=== PATIENT | female | born 1940 | race Caucasian/White ===

== ENCOUNTER 2018-04-02 14:49 | Outpatient (REF) | payer OTHER, MEDICAID, SELFPAY | END 2018-04-02 15:09 | LOC: NCHCN 14:49 | PROVIDERS: PCP Internal Medicine; Visit Provider Nurse Practitioner Family | DX: R30.0 Dysuria (principal) | CPT/HCPCS: 87077; 87086; 87186 ==

== ENCOUNTER 2018-04-09 21:20 | Outpatient (REF) | payer OTHER, MEDICAID, SELFPAY ==
[2018-04-09 22:05] LABS: RBC Negative (0-2); WBC 20-50 HPF (0-5)
[2018-04-09 22:06] LABS: Bacteria Moderate HPF (Negative); C & S Indicated? Yes; Crystals Negative HPF (Negative); Epithelial Cells Few HPF (Negative); Mucus Negative (Negative); Other Cells Rare Renal (Negative)
== END 2018-04-09 21:40 ==
LOC: NCHCN 21:20
PROVIDERS: PCP Internal Medicine; Visit Provider Nurse Practitioner Family
DX: N39.0 Urinary tract infection, site not specified (principal)
CPT/HCPCS: 87077; 81015; 87086; 87186

== ENCOUNTER 2018-05-18 13:53 | Outpatient (REF) | payer OTHER, MEDICAID, SELFPAY | END 2018-05-18 14:13 | LOC: NCHCN 13:53 | PROVIDERS: PCP Internal Medicine; Visit Provider Nurse Practitioner Family | DX: R30.0 Dysuria (principal) | CPT/HCPCS: 87077; 87086 ==

== ENCOUNTER 2019-05-11 13:41 | Inpatient (IN) | payer OTHER, MEDICAID, SELFPAY ==
[2019-05-11] VITALS (48 sets, daily range): BP systolic 126–166; BP diastolic 44–106; PULSE 86–109; RESP 3–31; TEMP 36.8–37.4; O2SAT 88–99
--- NOTE | 2019-05-11 14:43 | W.ED.GENAD ---
Discharge Plan Disposition Patient Disposition: [facility] INPATIENT Condition: Stable Discharge Details Chief Complaint: SOB Clinical Impression: Pneumonia, Acute hyponatremia Admit Date/Time: 05/11/19 18:24 Admit Provider: Terrence Stevenson Attending Provider: Terrence Stevenson Primary Care Provider: Sunny Torres ED Provider: Yenny Khan Discharge Data Discharge Date/Time-TO BE ENTERED AT DEPARTURE: 05/11/19 19:20 Medical Decision Making <ALANA Puga - Last Filed: 05/12/19 08:27> 78-year-old female with history of COPD, rheumatoid arthritis, hypertension presents to the ER for cough and increased dyspnea over the past 48 hours. Given her symptoms, travel to [place] where there was a positive ugalde virus test performed, patient certainly is a person under interest for potential coronavirus. She was placed in room 6, all PPE followed, negative pressure was turned on. Given the initial concern for ugalde virus, albuterol treatment not given. Will obtain IV access, routine laboratory values including troponin and will hold off on BNP as she does not appear to be fluid overloaded. Will obtain 1 view chest x-ray Laboratory values came back revealing WBC of 13.09, hemoglobin 10.5 hematocrit 32 sodium 123 potassium 5.3 creatinine 1.59 calcium 8.3. I have no point of reference for previous laboratory values. EKG did not show any signs of obvious hyperkalemia. Patient was given normal saline at 125 an hour while awaiting the rest of her work-up. Flu negative Chest x-ray reveals what appears to be diffuse multifocal pneumonia, cannot rule out failure. Will obtain BNP, lactate, 2 blood cultures, urinalysis. Will initiate IV Rocephin and azithromycin for community-acquired pneumonia. I was able to speak with ALANA Napoles who sent her here. He was able to review her previous record. She has a history of chronic kidney disease. On 03-30-19 her creatinine was 1.59 hemoglobin 10.8, hematocrit 35, sodium 136, potassium 4.9. It appears as though her renal function appears baseline today based upon these numbers, H&H are near baseline as well obviously sodium and potassium are both not at her baseline. Given her potassium today and her breathing complaints, will give a single albuterol neb. Now awaiting lactate, blood cultures x2, updraft, initiation of IV antibiotics, and BNP. Once work-up is complete we will plan to admit for multi focal pneumonia and hyponatremia. Medical Records Medical records reviewed: Yes I reviewed the patient's medical records. Imaging Data Radiologic Study: Attestation: I personally reviewed and interpreted this imaging study as follows: Radiologist's impression: Discussed chest x-ray with radiologist. Likely diffuse multifocal pneumonia however failure cannot be ruled out Lab Data Lab results reviewed: Yes I reviewed the patient's lab results. Lab results narrative: 05/11/19 15:49 Blood Blood Culture - Pending 05/11/19 15:49 Blood Blood Culture - Pending 05/11/19 15:00 Nasopharynx Influenza Types A,B Antigen - Final Laboratory Tests Range/Units 05/11/19 05/11/19 14:20 14:20 WBC (4.4-10.8) k/cumm 13.09 H RBC (4.00-5.20) m/cumm 3.78 L Hgb (12.0-15.5) g/dL 10.5 L Hct (36.0-46.0) % 32.0 L MCV (80-95) fL 84.7 MCH (27.0-33.0) pg 27.8 MCHC (32.0-36.0) g/dL 32.8 RDW (11.7-14.6) % 13.4 Plt Count (130-400) x1000/uL 316 MPV (8.0-11.0) fL 9.7 Immature Gran % % 0.0 Neutrophils % 83.0 Band Neutrophils % % 2.0 Lymphocytes % 3.0 Atypical Lymphs % 2 Monocytes % 8.0 Eosinophils % 0.0 Basophils % 0.0 Absolute Neutrophils (1.2-6.7) k/cumm 11.13 H Absolute Lymphocytes (1.2-3.4) k/cumm 0.65 L Absolute Monocytes (0.11-0.7) k/cumm 1.05 H Absolute Eosinophils (0.0-0.7) k/cumm 0.00 Absolute Basophils (0.0-0.2) k/cumm 0.00 Differential Comment Manual differential Other Cell Type RBC Morphology Normal Sodium (136-145) mmol/L 123 L* Potassium (3.5-5.1) mmol/L 5.3 H Chloride (98-107) mmol/L 93 L Carbon Dioxide (21.0-32.0) mmol/L 20.7 L Anion Gap (3-11) mmol/L 9.3 BUN (7-18) mg/dL 22 H Creatinine (0.55-1.02) mg/dL 1.59 H Estimated GFR/1.73 m2 (mL/min/1.73m2) 31.57 Glucose (74-106) mg/dL 74 Calcium (8.5-10.1) mg/dL 8.3 L Magnesium (1.8-2.4) mg/dL 1.8 Total Bilirubin (0.2-1.0) mg/dL 0.5 AST (15-37) U/L 47 H ALT (14-59) U/L 38 Alkaline Phosphatase (46-116) U/L 46 Troponin I (<0.06) ng/Ml < 0.05 Total Protein (6.4-8.2) g/dL 7.7 Albumin (3.4-5.0) g/dL 2.0 L ECG Data Attestation: I personally reviewed and interpreted this ECG (s) as follows: Interpretation: EKG reviewed and interpreted by Dr. Chirinos. Sinus rhythm with a ventricular rate of 92. No acute ST elevation or depression segments. <Yenny Khan - Last Filed: 05/11/19 19:43> Patient care accepted from ALANA Castillo see previously documented HPI and physical. This patient is awaiting lab results and pending admission for upper respiratory infection. Possibly multifocal pneumonia. Covid testing is underway and at this time patient is a PUI. Lactate and BNP resulted, Lactate is WNL and BNP slightly elevated at 344. Blood cultures pending. 171: Patient c/o some nausea, Zofran orders in place. 1741: Spoke with Dr. Stevenson who agrees to admit patient for possible pneumonia, hyponatremia, and hyperkalemia. Call made to transfer and pumphouse operator who reports patient to go up to negative pressure room on second floor. HPI <ALANA Puga - Last Filed: 05/12/19 08:27> General Mode of arrival: ambulatory. Date/Time Provider Initiated Documentation: 05/11/19 13:42. Limitations to Documentation: no limitations. Information obtained by: patient. HPI Narrative: This is a 78-year-old female with history of hypertension, RA, on methotrexate, COPD, GERD, presenting to the ER from her primary care office for what sounds to be 24-48-hour illness including cough which is dry, fatigue, shortness of breath. She has not traveled outside of the region however she did go to the [facility] in [place] where they did have a positive Covid patient. She does report that her significant other also developed a cough over the past 24 hours. She reports a a stomach cramp yesterday with mild nausea and one episode of vomiting but those GI symptoms have completely resolved. Noted to be 84% O2 saturation on room air and her primary care office. She was 90% upon arrival here without O2 supplementation. 3 L of O2 nasal cannula brought her up to 97%. She denies headache, neck pain, fever but has felt warm. Denies any chest pain, back pain, numbness, tingling, weakness, urinary or bowel symptoms. Patient does not wear home oxygen at baseline Related Data Home Medications Medication Instructions Recorded Confirmed calcium carbonate-vitamin D3 1 ea PO DAILY 04/15/16 05/11/19 [Calcium 600 + Vit D Tablet] hydroxychloroquine 200 mg PO DAILY 04/15/16 05/11/19 ipratropium-albuterol [Combivent 1 puff INHALATION QID PRN 04/15/16 05/11/19 Respimat Inhaler] lisinopril 10 mg PO DAILY 04/15/16 05/11/19 methotrexate sodium 5 tab PO .QWEEK 04/15/16 05/11/19 prednisone 1 mg PO DAILY 04/15/16 05/11/19 ranitidine HCl [Zantac] 150 mg PO DAILY 04/15/16 05/11/19 sertraline 100 mg PO DAILY 04/15/16 05/11/19 Allergies Allergy/AdvReac Type Severity Reaction Status Date / Time Sulfa (Sulfonamide Allergy Mild Skin Rash Unverified 05/11/19 13:52 Antibiotics) tramadol [From Ultram] AdvReac Intermediate vomiting Unverified 05/11/19 13:52 oxycodone [From Percocet] AdvReac Mild knocks me Unverified 05/11/19 13:52 out. I don't like it. General Stated Complaint: SOB SUSHMA: 3 Review of Systems <ALANA Puga - Last Filed: 05/12/19 08:27> Constitutional Constitutional: Reports fatigue, Reports fever(s) (Denies fever but she does feel warm) and Denies headache(s) Eyes Eyes: Denies eye discharge ENT Ears, Nose, Mouth, and Throat: Denies headache(s) and Denies sore throat Cardiovascular Cardiovascular: Denies chest pain and Denies dyspnea Respiratory Respiratory: Denies cough, Denies dyspnea and Denies wheezing Gastrointestinal Gastrointestinal: Reports abdominal pain (Yesterday), Denies diarrhea, Reports nausea (Yesterday) and Reports vomiting (Yesterday) Genitourinary Genitourinary: Denies dysuria Musculoskeletal Musculoskeletal: Denies myalgias Integumentary/Breasts Skin/Breast: Denies rash Neurologic Neurologic: Denies headache(s) Endocrine Endocrine: Reports fatigue Allergic/Immunologic Allergic/Immunologic: Denies wheezing PFSH <ALANA Puga - Last Filed: 05/12/19 08:27> Social History Smoking/Tobacco Use Status: Former Tobacco Use Alcohol Intake: never Drug use: Never Substance use type: does not use Exam <ALANA Puga - Last Filed: 05/12/19 08:27> Const General: cooperative and no acute distress Orientation: alert and awake HENVT Head: normal to inspection, normocephalic and atraumatic Mouth: moist mucous membranes abnormal (Slightly dry) Throat: posterior oropharynx normal Eyes Conjunctivae: conjunctivae normal Neck Neck: normal visual inspection, full ROM, no lymphadenopathy, no meningeal signs, trachea midline and supple Resp Effort & Inspection: normal respiratory effort, able to speak in complete sentences and cough Quality of cough: dry Auscultation: diminished lung sounds (Throughout), rhonchi (Bilateral base) and wheezes (Scattered throughout, mild) Cardio Rate: regular rate Rhythm: regular rhythm GI Inspection: normal to inspection Palpation: soft, not firm, no guarding, not rigid and nontender Auscultation: normal bowel sounds Back/Spine/Pelvis Back: No back tenderness Skin General skin exam: no rashes or lesions noted Trauma: abrasion (Right forearm, well-healing) Neuro General: patient alert, patient awake, patient oriented x3, moves all extremities and no focal motor deficits Sensory Exam: no sensory deficits noted Extrem General: normal to inspection, full ROM, capillary refill normal and no pedal edema Psych Appearance: grossly normal Mental Status: mental status grossly normal Course <ALANA Puga - Last Filed: 05/12/19 08:27> Vital Signs Vital signs: Vital Signs Temperature 36.8 C 05/11/19 13:48 Pulse 94 H 05/11/19 13:48 Respiratory Rate 18 05/11/19 13:48 Blood Pressure 166/55 H 05/11/19 13:48 Pulse Oximetry 91 L 05/11/19 13:48 Temperature 36.8 C 05/11/19 13:48 Temperature Source Tympanic 05/11/19 13:48 Pulse 94 H 05/11/19 13:48 Respiratory Rate 18 05/11/19 13:48 Respiratory Effort Short of Breath 05/11/19 13:51 Blood Pressure 166/55 H 05/11/19 13:48 Blood Pressure Position Sitting 05/11/19 13:48 Pulse Oximetry 91 L 05/11/19 13:48 Oxygen Delivery Method Room Air 05/11/19 13:48 Oxygen Flow Rate 0 05/11/19 13:48 Pain Level 0 05/11/19 13:48 Sign Out <ALANA Puga - Last Filed: 05/12/19 08:27> Sign Out Data: Sign Out Comment: Awaiting lactate, BNP, blood culture x2. Awaiting albuterol updraft and reassessment. Initiating Rocephin and azithromycin. Once work-up is completed, patient will need admission. Last updated by Aydin Aponte PA at 05/11/19 16:16
[2019-05-11 14:57] LABS: Abs Immature Grans 0.03 k/cumm (0.0-0.09); HGB 10.5 g/dL (12.0-15.5); Mean Corp. HGB Concentration 32.8 g/dL (32.0-36.0); Mean Corpuscular Hemoglobin 27.8 pg (27.0-33.0); Mean Corpuscular Volume 84.7 fL (80-95); Mean Platelet Volume 9.7 fL (8.0-11.0); Platelet Count 316 x1000/uL (130-400); RBC 3.78 m/cumm (4.00-5.20); RBC Distribution Width 13.4 % (11.7-14.6); White Blood Cell Count 13.09 k/cumm (4.4-10.8)
[2019-05-11 15:13] LABS: ALT 38 U/L (14-59); AST 47 U/L (15-37); Alkaline Phosphatase 46 U/L (46-116); Anion Gap 9.3 mmol/L (3-11); BUN 22 mg/dL (7-18); Bilirubin, Total 0.5 mg/dL (0.2-1.0); CO2 20.7 mmol/L (21.0-32.0); CREATININE 1.59 mg/dL (0.55-1.02); Calcium 8.3 mg/dL (8.5-10.1); Chloride 93 mmol/L (98-107); Estimated GFR 31.57 (mL/min/1.73m2); Glucose 74 mg/dL (74-106); Magnesium 1.8 mg/dL (1.8-2.4); Potassium 5.3 mmol/L (3.5-5.1); Total Protein 7.7 g/dL (6.4-8.2)
[2019-05-11 15:15] LABS: Sodium 123 mmol/L (136-145); Troponin I < 0.05 ng/Ml (<0.06)
--- NOTE | 2019-05-11 15:16 | DI.RAD_ITS ---
EXAM: XR PORTABLE CHEST AP CLINICAL HISTORY: cough COMPARISON: No exams were available for comparison FINDINGS: The heart may be mildly enlarged. There are bilateral diffuse patchy, predominantly interstitial pulm onary infiltrates. No gross lobar consolidation seen. IMPRESSION: Multifocal/diffuse bilateral intrapulmonary infiltrates which appear to involve all pulmonary lobes. The findings are nonspecific, differential diagnosis would include CHF versus multifocal or diffuse p neumonia. Appropriate follow-up studies requested.
[2019-05-11] MEDS: Normal Saline 1,000 ML 100 ML IV (15:31)
[2019-05-11 15:43] LABS: Absolute Lymphocyte Count 0.65 k/cumm (1.2-3.4); Absolute Monocyte Count 1.05 k/cumm (0.11-0.7); Absolute Neutrophil Count 11.13 k/cumm (1.2-6.7); Atypical Lymphocytes % 2
[2019-05-11 15:45] LABS: Diff Comment Manual Differential; RBC Morphology Normal
[2019-05-11 16:44] LABS: Lactate 1.1 mmol/L (0.6-1.4)
[2019-05-11] MEDS: Albuterol 2.5 MG/3 ML INH SOLN VIAL UPD (16:51)
[2019-05-11] MEDS: cefTRIAXone 1 GM/50 ML BAG IVPB (16:51)
--- NOTE | 2019-05-11 16:52 | NUR.NOTE ---
after blood cultures where obtained , IV meds given as orderdNursing Note:
[2019-05-11] MEDS: AZITHROMYCIN 500 MG in Normal Saline 250 ML 250 MG IVPB (17:28)
[2019-05-11] MEDS: Ondansetron 4 MG/2 ML VIAL IVP (17:28)
[2019-05-11 17:32] LABS: NT-proBNP 344 pg/mL (<300)
[2019-05-11 17:54] LABS: Bilirubin Negative (Negative); Blood Small (Negative); Clarity Cloudy (Clear); Glucose Negative (Negative); Ketones Trace mg/dL (Negative); Leukocyte Esterase Small (Negative); Nitrite Positive (Negative); Specific Gravity 1.025 (1.005-1.025); Urobilinogen 0.2 EU/dL (Up TO 0.2)
--- NOTE | 2019-05-11 18:01 | W.PM.HP.N ---
Date of service: 05/11/19 Time of Service: 18:01 Assessment and Plan Assessment and plan (1) Pneumonia: Status: Acute Assessment and plan: 1. COPD with apparent pneumonia. Likely bacterial, will certainly cover for same, along with steroids and updrafts for COPD The hyponatremia is noted, non-specific, and no old records (usually cared for in [place]), but does raise obliquely possibility of Legionella, and will add urinary antigen testing. I think the risk for Covid 19 is low but not zero and will maintain precautions pending test results. 2. Hyponatremia: r/o hypovolemic, r/o SIADH due to SSRI or legionella: Will hold Zoloft, check old records, hydrate and monitor 3. Hyperkalemia (5.3): hold Lisinopril, monitor 4. Reviewed advance directives: requests DNR History of Present Illness History of Present Illness Chief Complaint: cough and SOB Narrative: 78 female with COPD, and immunocompromised secondary to use of Prednisone and MTX for RA -- here with two days of cough and SOB. Note that boyfriend has had similar illness. [facility] where + Covid19 case reported but no known direct contact. At any rate here in ER findings of note for RA sat 89%, RR 18, wheeze and rhonchi, leukocytosis (13), and CXR showing multifocal pneumonitis. Hyponatremia (123) and hyperkalemia (5.3) also noted. Blood cxx obtained, Covid19 swab obtained, given updraft, Rocephin and Zithromax. Admitted for further management. Review of Systems All systems reviewed & are unremarkable except as noted in HPI and below PFSH Social History Smoking/Tobacco Use Status: Former Tobacco Use Alcohol Intake: never Drug use: Never Substance use type: does not use Meds Home Medications and Allergies Home Medications Medication Instructions Recorded Confirmed Type calcium carbonate-vitamin D3 1 ea PO DAILY 04/15/16 05/11/19 History [Calcium 600 + Vit D Tablet] hydroxychloroquine 200 mg PO DAILY 04/15/16 05/11/19 History ipratropium-albuterol [Combivent 1 puff INHALATION QID PRN 04/15/16 05/11/19 History Respimat Inhaler] lisinopril 10 mg PO DAILY 04/15/16 05/11/19 History methotrexate sodium 5 tab PO .QWEEK 04/15/16 05/11/19 History prednisone 1 mg PO DAILY 04/15/16 05/11/19 History ranitidine HCl [Zantac] 150 mg PO DAILY 04/15/16 05/11/19 History sertraline 100 mg PO DAILY 04/15/16 05/11/19 History Allergies Allergy/AdvReac Type Severity Reaction Status Date / Time Sulfa (Sulfonamide Allergy Mild Skin Rash Unverified 05/11/19 13:52 Antibiotics) tramadol [From Ultram] AdvReac Intermediate vomiting Unverified 05/11/19 13:52 oxycodone [From Percocet] AdvReac Mild knocks me Unverified 05/11/19 13:52 out. I don't like it. Exam Narrative Exam Narrative: 156/57, 89, 18, 37.2. 91% 1L. HEENT AStraumatic; neck supple; lings dimiminished BS, scattered rhochi and wheeze; heart distnat but RRR; abdomen soft and NT; extremities w/o edema; neuro ox3 non-focal Results CXR shows bibasilar pneumonitis with increased diffuse interstitial pattern, with normal heart size. Labs Result diagrams: 05/11/19 14:20 05/11/19 14:20 Labs: Laboratory Results - last 24 hr 05/11/19 05/11/19 05/11/19 14:20 14:20 16:30 WBC 13.09 H RBC 3.78 L Hgb 10.5 L Hct 32.0 L MCV 84.7 MCH 27.8 MCHC 32.8 RDW 13.4 Plt Count 316 MPV 9.7 Immature Gran % 0.0 Neutrophils % 83.0 Band Neutrophils % 2.0 Lymphocytes % 3.0 Atypical Lymphs % 2 Monocytes % 8.0 Eosinophils % 0.0 Basophils % 0.0 Absolute Neutrophils 11.13 H Absolute Lymphocytes 0.65 L Absolute Monocytes 1.05 H Absolute Eosinophils 0.00 Absolute Basophils 0.00 Differential Comment Manual differential Other Cell Type RBC Morphology Normal Sodium 123 L* Potassium 5.3 H Chloride 93 L Carbon Dioxide 20.7 L Anion Gap 9.3 BUN 22 H Creatinine 1.59 H Estimated GFR/1.73 m2 31.57 Glucose 74 Lactate Calcium 8.3 L Magnesium 1.8 Total Bilirubin 0.5 AST 47 H ALT 38 Alkaline Phosphatase 46 Troponin I < 0.05 NT-Pro-B Natriuret Pep 344 H Total Protein 7.7 Albumin 2.0 L Urine Color Urine Clarity Urine pH Ur Specific [place] Urine Protein Urine Ketones Urine Blood Urine Nitrite Urine Bilirubin Urine Urobilinogen Ur Leukocyte Esterase Urine Glucose 05/11/19 05/11/19 16:30 17:45 WBC RBC Hgb Hct MCV MCH MCHC RDW Plt Count MPV Immature Gran % Neutrophils % Band Neutrophils % Lymphocytes % Atypical Lymphs % Monocytes % Eosinophils % Basophils % Absolute Neutrophils Absolute Lymphocytes Absolute Monocytes Absolute Eosinophils Absolute Basophils Differential Comment Other Cell Type RBC Morphology Sodium Potassium Chloride Carbon Dioxide Anion Gap BUN Creatinine Estimated GFR/1.73 m2 Glucose Lactate 1.1 Calcium Magnesium Total Bilirubin AST ALT Alkaline Phosphatase Troponin I NT-Pro-B Natriuret Pep Total Protein Albumin Urine Color Yellow Urine Clarity Cloudy Urine pH 6.0 Ur Specific [place] 1.025 Urine Protein 30 H Urine Ketones Trace H Urine Blood Small H Urine Nitrite Positive H Urine Bilirubin Negative Urine Urobilinogen 0.2 Ur Leukocyte Esterase Small H Urine Glucose Negative Last Vital Signs Temp 37.2 C 05/11/19 16:57 Pulse 89 05/11/19 16:57 Resp 18 05/11/19 16:57 BP 156/57 H 05/11/19 16:57 Pulse Ox 91 L 05/11/19 16:57
[2019-05-11 18:14] LABS: Bacteria Many HPF (Negative); C & S Indicated? No/Sq. Contamination; Casts Negative LPF (Negative); Crystals Negative HPF (Negative); Epithelial Cells Many HPF (Negative); Mucus Negative (Negative); Other Cells Negative (Negative)
[2019-05-11] MEDS: methylPREDNISolone SUCC 40 MG VIAL IVP (18:46)
[2019-05-11] MEDS: Albuterol/Ipratropium 3 ML UPD VIAL UPD (21:17)
[2019-05-11] MEDS: Melatonin 3 MG TAB PO (21:19)
[2019-05-12] VITALS (12 sets, daily range): BP systolic 136–151; BP diastolic 58–75; PULSE 83–86; RESP 3–32; TEMP 36.2–36.6; O2SAT 90–95
[2019-05-12] MEDS: Albuterol/Ipratropium 3 ML UPD VIAL UPD (02:30)
[2019-05-12] MEDS: methylPREDNISolone SUCC 40 MG VIAL IVP ×3 (02:32→17:06)
[2019-05-12] MEDS: Normal Saline Flush 10 ML SYR IVP ×3 (02:32→17:06)
[2019-05-12 07:22] LABS: HCT 29.2 % (36.0-46.0); HGB 9.4 g/dL (12.0-15.5); Mean Corp. HGB Concentration 32.2 g/dL (32.0-36.0); Mean Corpuscular Hemoglobin 27.4 pg (27.0-33.0); Mean Corpuscular Volume 85.1 fL (80-95); Mean Platelet Volume 9.7 fL (8.0-11.0); Platelet Count 303 x1000/uL (130-400); RBC 3.43 m/cumm (4.00-5.20); RBC Distribution Width 13.4 % (11.7-14.6); White Blood Cell Count 9.67 k/cumm (4.4-10.8)
[2019-05-12 07:23] LABS: Anion Gap 11.1 mmol/L (3-11); BUN 20 mg/dL (7-18); CO2 18.9 mmol/L (21.0-32.0); CREATININE 1.61 mg/dL (0.55-1.02); Calcium 7.6 mg/dL (8.5-10.1); Chloride 96 mmol/L (98-107); Estimated GFR 31.11 (mL/min/1.73m2); Glucose 155 mg/dL (74-106); Potassium 5.1 mmol/L (3.5-5.1); Sodium 126 mmol/L (136-145)
[2019-05-12] MEDS: Hydroxychloroquine 200 MG TAB PO (08:12)
[2019-05-12] MEDS: Famotidine 20 MG TAB PO (08:13)
--- NOTE | 2019-05-12 08:26 | ED.GENADUL_ITS ---
Discharge Plan Disposition Patient Disposition: [facility] INPATIENT Condition: Stable Discharge Details Chief Complaint: SOB Clinical Impression: Pneumonia, Acute hyponatremia Admit Date/Time: 05/11/19 18:24 Admit Provider: Terrence Stevenson Attending Provider: Terrence Stevenson Primary Care Provider: Sunny Torres ED Provider: Yenny Khan Discharge Data Discharge Date/Time-TO BE ENTERED AT DEPARTURE: 05/11/19 19:20 HPI General Mode of arrival: ambulatory . Date/Time Provider Initiated Documentation: 05/11/19 13:42 . Limitations to Documentation: no limitations . Information obtained by: patient . Related Data Home Medications Medication Instructions Recorded Confirmed calcium carbonate-vitamin D3 1 ea PO DAILY 04/15/16 05/11/19 [Calcium 600 + Vit D Tablet] hydroxychloroquine 200 mg PO DAILY 04/15/16 05/11/19 ipratropium-albuterol [Combivent 1 puff INHALATION QID PRN 04/15/16 05/11/19 Respimat Inhaler] lisinopril 10 mg PO DAILY 04/15/16 05/11/19 methotrexate sodium 5 tab PO .QWEEK 04/15/16 05/11/19 prednisone 1 mg PO DAILY 04/15/16 05/11/19 ranitidine HCl [Zantac] 150 mg PO DAILY 04/15/16 05/11/19 sertraline 100 mg PO DAILY 04/15/16 05/11/19 Allergies Allergy/AdvReac Type Severity Reaction Status Date / Time Sulfa (Sulfonamide Allergy Mild Skin Rash Unverified 05/11/19 13:52 Antibiotics) tramadol [From Ultram] AdvReac Intermediate vomiting Unverified 05/11/19 13:52 oxycodone [From Percocet] AdvReac Mild knocks me Unverified 05/11/19 13:52 out. I don't like it. General Stated Complaint: SOB SUSHMA: 3 PFSH Social History Smoking/Tobacco Use Status: Former Tobacco Use Alcohol Intake: never Drug use: Never Substance use type: does not use Course Vital Signs Vital signs: Vital Signs Temperature 36.8 C 05/11/19 13:48 Pulse 94 H 05/11/19 13:48 Respiratory Rate 18 05/11/19 13:48 Blood Pressure 166/55 H 05/11/19 13:48 Pulse Oximetry 91 L 05/11/19 13:48 Temperature 36.6 C 05/12/19 08:14 Temperature Source Tympanic 05/12/19 08:14 Pulse 86 05/12/19 08:14 Pulse Rhythm Regular 05/12/19 02:38 Pulse 95 H 05/11/19 18:30 Respiratory Rate 32 H 05/12/19 08:21 Respiratory Effort Incrsd Work of Breathing 05/12/19 08:21 Respiratory Depth Deep 05/12/19 08:21 Respiratory Pattern Normal 05/12/19 08:21 Blood Pressure 144/64 H 05/12/19 08:14 Blood Pressure Mean 67 05/11/19 17:30 Blood Pressure Position Sitting 05/11/19 13:48 Pulse Oximetry 93 L 05/12/19 08:20 Oxygen Delivery Method Nasal Cannula 05/12/19 08:20 Oxygen Flow Rate 1 05/12/19 08:20 Pain Level 0 05/12/19 00:35 Comment 05/11/19 19:55 Lab/Test Results Lab/Test Results: 05/11/19 16:40 Blood Blood Culture - Pending 05/11/19 16:30 Blood Blood Culture - Pending 05/11/19 15:00 Nasopharynx Influenza Types A,B Antigen - Final Laboratory Tests Range/Units 05/11/19 05/11/19 05/11/19 14:20 14:20 16:30 WBC (4.4-10.8) k/cumm 13.09 H RBC (4.00-5.20) m/cumm 3.78 L Hgb (12.0-15.5) g/dL 10.5 L Hct (36.0-46.0) % 32.0 L MCV (80-95) fL 84.7 MCH (27.0-33.0) pg 27.8 MCHC (32.0-36.0) g/dL 32.8 RDW (11.7-14.6) % 13.4 Plt Count (130-400) x1000/uL 316 MPV (8.0-11.0) fL 9.7 Immature Gran % % 0.0 Neutrophils % 83.0 Band Neutrophils % % 2.0 Lymphocytes % 3.0 Atypical Lymphs % 2 Monocytes % 8.0 Eosinophils % 0.0 Basophils % 0.0 Absolute Neutrophils (1.2-6.7) k/cumm 11.13 H Absolute Lymphocytes (1.2-3.4) k/cumm 0.65 L Absolute Monocytes (0.11-0.7) k/cumm 1.05 H Absolute Eosinophils (0.0-0.7) k/cumm 0.00 Absolute Basophils (0.0-0.2) k/cumm 0.00 Differential Comment Manual differential Other Cell Type RBC Morphology Normal Sodium (136-145) mmol/L 123 L* Potassium (3.5-5.1) mmol/L 5.3 H Chloride (98-107) mmol/L 93 L Carbon Dioxide (21.0-32.0) mmol/L 20.7 L Anion Gap (3-11) mmol/L 9.3 BUN (7-18) mg/dL 22 H Creatinine (0.55-1.02) mg/dL 1.59 H Estimated GFR/1.73 m2 (mL/min/1.73m2) 31.57 Glucose (74-106) mg/dL 74 Lactate (0.6-1.4) mmol/L Calcium (8.5-10.1) mg/dL 8.3 L Magnesium (1.8-2.4) mg/dL 1.8 Total Bilirubin (0.2-1.0) mg/dL 0.5 AST (15-37) U/L 47 H ALT (14-59) U/L 38 Alkaline Phosphatase (46-116) U/L 46 Troponin I (<0.06) ng/Ml < 0.05 NT-Pro-B Natriuret Pep (<300) pg/mL 344 H Total Protein (6.4-8.2) g/dL 7.7 Albumin (3.4-5.0) g/dL 2.0 L Urine Color (Yellow) Urine Clarity (Clear) Urine pH (5-8) Ur Specific [place] (1.005-1.025) Urine Protein (Negative) mg/dL Urine Ketones (Negative) mg/dL Urine Blood (Negative) Urine Nitrite (Negative) Urine Bilirubin (Negative) Urine Urobilinogen (Up TO 0.2) EU/dL Ur Leukocyte Esterase (Negative) Urine RBC (0-2) HPF Urine WBC (0-5) HPF Ur Epithelial Cells (Negative) HPF Urine Crystals (Negative) HPF Urine Bacteria (Negative) HPF Urine Casts (Negative) LPF Urine Mucus (Negative) Urine Other (Negative) Ur Culture Indicated? Urine Glucose (Negative) mg/dL Range/Units 05/11/19 05/11/19 16:30 17:45 WBC (4.4-10.8) k/cumm RBC (4.00-5.20) m/cumm Hgb (12.0-15.5) g/dL Hct (36.0-46.0) % MCV (80-95) fL MCH (27.0-33.0) pg MCHC (32.0-36.0) g/dL RDW (11.7-14.6) % Plt Count (130-400) x1000/uL MPV (8.0-11.0) fL Immature Gran % % Neutrophils % Band Neutrophils % % Lymphocytes % Atypical Lymphs % Monocytes % Eosinophils % Basophils % Absolute Neutrophils (1.2-6.7) k/cumm Absolute Lymphocytes (1.2-3.4) k/cumm Absolute Monocytes (0.11-0.7) k/cumm Absolute Eosinophils (0.0-0.7) k/cumm Absolute Basophils (0.0-0.2) k/cumm Differential Comment Other Cell Type RBC Morphology Sodium (136-145) mmol/L Potassium (3.5-5.1) mmol/L Chloride (98-107) mmol/L Carbon Dioxide (21.0-32.0) mmol/L Anion Gap (3-11) mmol/L BUN (7-18) mg/dL Creatinine (0.55-1.02) mg/dL Estimated GFR/1.73 m2 (mL/min/1.73m2) Glucose (74-106) mg/dL Lactate (0.6-1.4) mmol/L 1.1 Calcium (8.5-10.1) mg/dL Magnesium (1.8-2.4) mg/dL Total Bilirubin (0.2-1.0) mg/dL AST (15-37) U/L ALT (14-59) U/L Alkaline Phosphatase (46-116) U/L Troponin I (<0.06) ng/Ml NT-Pro-B Natriuret Pep (<300) pg/mL Total Protein (6.4-8.2) g/dL Albumin (3.4-5.0) g/dL Urine Color (Yellow) Yellow Urine Clarity (Clear) Cloudy Urine pH (5-8) 6.0 Ur Specific [place] (1.005-1.025) 1.025 Urine Protein (Negative) mg/dL 30 H Urine Ketones (Negative) mg/dL Trace H Urine Blood (Negative) Small H Urine Nitrite (Negative) Positive H Urine Bilirubin (Negative) Negative Urine Urobilinogen (Up TO 0.2) EU/dL 0.2 Ur Leukocyte Esterase (Negative) Small H Urine RBC (0-2) HPF 5-10 H Urine WBC (0-5) HPF 10-20 H Ur Epithelial Cells (Negative) HPF Many Urine Crystals (Negative) HPF Negative Urine Bacteria (Negative) HPF Many Urine Casts (Negative) LPF Negative Urine Mucus (Negative) Negative Urine Other (Negative) Negative Ur Culture Indicated? No/sq. contamination Urine Glucose (Negative) mg/dL Negative Sign Out Sign Out Data: Sign Out Comment: Awaiting lactate, BNP, blood culture x2. Awaiting albuterol updraft and reassessment. Initiating Rocephin and azithromycin. Once work-up is completed, patient will need admission. Last updated by Aydin Aponte PA at 05/11/19 16:16
[2019-05-12 10:22] LABS: Lactate 1.3 mmol/L (0.6-1.4)
[2019-05-12 10:48] LABS: Creatine Kinase 157 U/L (26-192)
[2019-05-12 11:12] LABS: Procalcitonin 0.1 ng/mL
[2019-05-12] MEDS: Ipratropium/Albuterol 4 GM 120 PUFF INH IH ×3 (12:17→20:54)
--- NOTE | 2019-05-12 12:34 | PHACLINREV_ITS ---
Pharmacy Clinical Review - Admission Clinical Review (Last Reviewed 05/11/19 @ 18:12 by Terrence Stevenson MD) Pneumonia (Acute) Pneumonia (Acute) Acute hyponatremia (Acute) Sulfa (Sulfonamide Antibiotics) Allergy (Mild, Unverified 05/11/19 13:52) Skin Rash tramadol [From Ultram] Adverse Reaction (Intermediate, Unverified 05/11/19 13 :52) vomiting oxycodone [From Percocet] Adverse Reaction (Mild, Unverified 05/11/19 13:52) knocks me out. I don't like it. Height 5 ft 4 in Weight 74 kg COPD,PNEUMONIA, COVID-19 PENDING - Renal Dosing Renal Dosing: BUN 20 mg/dL (7-18) H 05/12/19 06:47 Creatinine 1.61 mg/dL (0.55-1.02) H 05/12/19 06:47 Medications needing adjustments: Reviewed (Current inpatient meds ok, no adjustments needed. CrCl~25.6ml/min) - Anticoagulation Anticoagulation: Hgb 9.4 g/dL (12.0-15.5) L 05/12/19 06:47 Hct 29.2 % (36.0-46.0) L 05/12/19 06:47 Plt Count 303 x1000/uL (130-400) 05/12/19 06:47 Creatinine 1.61 mg/dL (0.55-1.02) H 05/12/19 06:47 DVT Prohphylaxis: Intervened (No anticoagulation ordered, will alert ) Therapeutic Anticoagulation: N/A - Opiate Usage Evaluate Pain Scale/Pains Meds: N/A - Relevant Labs Sodium 126 mmol/L (136-145) L 05/12/19 06:47 Potassium 5.1 mmol/L (3.5-5.1) 05/12/19 06:47 Chloride 96 mmol/L (98-107) L 05/12/19 06:47 Magnesium 1.8 mg/dL (1.8-2.4) 05/11/19 14:20 Electrolytes, C-Reactive P, ESR: Reviewed (K+ slightly down, Lisinopril being held, Probnp 344,Lactate normal) - Antimicrobial Stewardship Antibiotic appropriateness: Reviewed (Rocephin/Azithromycin IV day#2) Surgical Abx d/c within 24 hr: N/A Culture review/Resistance: Reviewed (Blood and urine pending, flu negative. Chest xray shows multifocal/diffuse bilateral infiltrates vs CHF, COVID19 pending) - DM Control DM Control: Glucose 155 mg/dL (74-106) H D 05/12/19 06:47 Insulin Dosing: N/A - Heart Failure/CT Heart Failure/CT: Troponin I < 0.05 ng/Ml (<0.06) 05/11/19 14:20 NT-Pro-B Natriuret Pep 344 pg/mL (<300) H 05/11/19 16:30 - BP Control BP Control: Blood Pressure 151/64 Blood Pressure 144/64 Blood Pressure 136/58 If elevated: Reviewed (Lisinopril being held for elevated Potassium-watch for restart) - QTc Review If Elevated: Reviewed (QTC 428) - IV to PO Switch IV Medications: Reviewed (IV steroids, IV Azithromycin when appropriate) - Home Meds Home Med List reviewed: Reviewed Relevent Home Meds Not ordered & why?: Calcium w/D, Lisinopril-held for elevated Potassium, MTX once/week, Ranitidine (has Famotidine ordered), Sertraline-held for possible SIADH per H&P - Current meds Current Medication Order Review: Intervened (Duonebs ordered q6h, also has Comb ivent respimat...duplication, will let MD know) - Comments Comments/Follow Ups: COVID-19 pending-check Serology report, advancing diet, watch for IV to PO switch, likely will have repeat Chest Xray. Patient is in a Negative pressure room (MS-228)
[2019-05-12] MEDS: cefTRIAXone 1 GM/50 ML BAG IVPB (16:01)
--- NOTE | 2019-05-12 17:10 | W.PM.PROGNOT ---
Date of Service Date of service: 05/12/19 Time of Service: 17:10 Assessment and Plan Assessment and plan (1) Acute exacerbation of CHF (congestive heart failure): Status: Acute Assessment and plan: Start lasix. Obtain PCP records. May need an echo (2) Dilutional hyponatremia: Status: Acute Assessment and plan: Together with hypoalbuminemia, suggestive of cirrhosis. Would benefit from US abdomen if there is not already a formally made diagnosis. Obtain PCP records. Start diuresis. Trend sodium. (3) GANESH (acute kidney injury): Status: Acute Assessment and plan: Continue to hold mili-i. Start diuresis, carefully monitoring kidney function. (4) Acute exacerbation of chronic obstructive pulmonary disease (COPD): Status: Acute Assessment and plan: Continue current dose of IV steroids; changed nebs to inhalers instead. (5) CAP (community acquired pneumonia): Status: Acute Assessment and plan: Most likely bacterial PNA. COVID 19 testing is pending, but the leucocytosis on admission is suggestive of a bacterial process. Await covid 19. Continue azithromycin/ceftriaxone. (6) Hypoxia: Status: Acute Assessment and plan: Slightly worse than yesterday. Suspect due to a combination of CHF, COPD exacerbation and pneumonia. (7) Hypoalbuminemia: Status: Acute Assessment and plan: ?cirrhosis. Will attempt to get PCP records (8) UTI (urinary tract infection): Status: Acute Assessment and plan: present on admission. C&S pending. Continue empiric ceftriaxone (9) DVT prophylaxis: Status: Acute Assessment and plan: Start SC heparin (10) Discharge planning issues: Status: Acute Assessment and plan: DNR/DNI Continues to require hospitalization Subjective Subjective Interval history since last seen: Ms Solitario states she is feeling better. She denies dizziness, chest pain, states her cough is nonproductive, denies n/v. She is on 2L of O2, states oxygen is new for her. Exam Narrative Exam Narrative: General: Very pleasant elderly female, A&Ox3, laying comfortably in bed, not in acute distress HEENT: EOMI, MMM Heart: RRR, no m/r/g Lungs: crackles about midway up both lungs, also some rhonchi Abdomen: soft, nontender, nondistended Extremities: no e/c/c BLE's Objective Objective Clinical Data: Abnormal lab results 05/11/19 05/11/19 05/12/19 Range/Units 16:30 17:45 06:47 RBC (4.00-5.20) m/cumm Hgb (12.0-15.5) g/dL Hct (36.0-46.0) % Sodium 126 L (136-145) mmol/L Chloride 96 L (98-107) mmol/L Carbon Dioxide 18.9 L (21.0-32.0) mmol/L Anion Gap 11.1 H (3-11) mmol/L BUN 20 H (7-18) mg/dL Creatinine 1.61 H (0.55-1.02) mg/dL Glucose 155 H D (74-106) mg/dL Calcium 7.6 L (8.5-10.1) mg/dL NT-Pro-B Natriuret Pep 344 H (<300) pg/mL Urine Protein 30 H (Negative) mg/dL Urine Ketones Trace H (Negative) mg/dL Urine Blood Small H (Negative) Urine Nitrite Positive H (Negative) Ur Leukocyte Esterase Small H (Negative) Urine RBC 5-10 H (0-2) HPF Urine WBC 10-20 H (0-5) HPF 05/12/19 Range/Units 06:47 RBC 3.43 L (4.00-5.20) m/cumm Hgb 9.4 L (12.0-15.5) g/dL Hct 29.2 L (36.0-46.0) % Sodium (136-145) mmol/L Chloride (98-107) mmol/L Carbon Dioxide (21.0-32.0) mmol/L Anion Gap (3-11) mmol/L BUN (7-18) mg/dL Creatinine (0.55-1.02) mg/dL Glucose (74-106) mg/dL Calcium (8.5-10.1) mg/dL NT-Pro-B Natriuret Pep (<300) pg/mL Urine Protein (Negative) mg/dL Urine Ketones (Negative) mg/dL Urine Blood (Negative) Urine Nitrite (Negative) Ur Leukocyte Esterase (Negative) Urine RBC (0-2) HPF Urine WBC (0-5) HPF Vital Signs Temperature 36.4 C L 05/12/19 15:05 Temperature Source Temporal Artery Scan 03/19/20 15:05 Pulse 83 05/12/19 15:05 Pulse Rhythm Regular 05/12/19 08:15 Pulse 95 H 05/11/19 18:30 Respiratory Rate 24 05/12/19 15:05 Respiratory Effort Incrsd Work of Breathing 05/12/19 12:22 Respiratory Depth Deep 05/12/19 12:22 Respiratory Pattern Normal 05/12/19 12:22 Blood Pressure 151/64 H 05/12/19 11:41 Blood Pressure Mean 67 05/11/19 17:30 Blood Pressure Position Sitting 05/11/19 13:48 Pulse Oximetry 92 L 05/12/19 16:20 Oxygen Delivery Method Nasal Cannula 05/12/19 16:20 Oxygen Flow Rate 2 05/12/19 16:20 Pain Level 0 05/12/19 00:35 Comment 05/12/19 15:05 Intake & Output 05/11/19 05/12/19 05/12/19 23:59 11:59 23:59 Intake Total 300 / 300 1300 / 1550 250 / 1550 Output Total 300 / 300 Balance 300 / 300 1300 / 1250 -50 / 1250 Weight 74 kg Intake: IV 300 / 300 1000 / 1000 Oral 300 / 550 250 / 550 Output: Urine 300 / 300 Other: Urine Color Yellow Yellow Urine Appearance Clear Clear Clear Urine Odor None None Comment mixed with stool Stool Size Small Small Stool Characteristics Liquid Soft Brown Formed Brown Bloody Voiding Methods Toilet Toilet Laboratory Results WBC 9.67 k/cumm (4.4-10.8) 05/12/19 06:47 RBC 3.43 m/cumm (4.00-5.20) L 05/12/19 06:47 Hgb 9.4 g/dL (12.0-15.5) L 05/12/19 06:47 Hct 29.2 % (36.0-46.0) L 05/12/19 06:47 MCV 85.1 fL (80-95) 05/12/19 06:47 MCH 27.4 pg (27.0-33.0) 05/12/19 06:47 MCHC 32.2 g/dL (32.0-36.0) 05/12/19 06:47 RDW 13.4 % (11.7-14.6) 05/12/19 06:47 Plt Count 303 x1000/uL (130-400) 05/12/19 06:47 MPV 9.7 fL (8.0-11.0) 05/12/19 06:47 Immature Gran % 0.0 % 05/11/19 14:20 Neutrophils % 83.0 05/11/19 14:20 Band Neutrophils % 2.0 % 05/11/19 14:20 Lymphocytes % 3.0 05/11/19 14:20 Atypical Lymphs % 2 05/11/19 14:20 Monocytes % 8.0 05/11/19 14:20 Eosinophils % 0.0 05/11/19 14:20 Basophils % 0.0 05/11/19 14:20 Absolute Neutrophils 11.13 k/cumm (1.2-6.7) H 05/11/19 14:20 Absolute Lymphocytes 0.65 k/cumm (1.2-3.4) L 05/11/19 14:20 Absolute Monocytes 1.05 k/cumm (0.11-0.7) H 05/11/19 14:20 Absolute Eosinophils 0.00 k/cumm (0.0-0.7) 05/11/19 14:20 Absolute Basophils 0.00 k/cumm (0.0-0.2) 05/11/19 14:20 Differential Comment Manual differential 05/11/19 14:20 Other Cell Type 05/11/19 14:20 RBC Morphology Normal 05/11/19 14:20 Sodium 126 mmol/L (136-145) L 05/12/19 06:47 Potassium 5.1 mmol/L (3.5-5.1) 05/12/19 06:47 Chloride 96 mmol/L (98-107) L 05/12/19 06:47 Carbon Dioxide 18.9 mmol/L (21.0-32.0) L 05/12/19 06:47 Anion Gap 11.1 mmol/L (3-11) H 05/12/19 06:47 BUN 20 mg/dL (7-18) H 05/12/19 06:47 Creatinine 1.61 mg/dL (0.55-1.02) H 05/12/19 06:47 Estimated GFR/1.73 m2 31.11 (mL/min/1.73m2) 05/12/19 06:47 Glucose 155 mg/dL (74-106) H D 05/12/19 06:47 Lactate 1.3 mmol/L (0.6-1.4) 05/12/19 10:13 Calcium 7.6 mg/dL (8.5-10.1) L 05/12/19 06:47 Magnesium 1.8 mg/dL (1.8-2.4) 05/11/19 14:20 Total Bilirubin 0.5 mg/dL (0.2-1.0) 05/11/19 14:20 AST 47 U/L (15-37) H 05/11/19 14:20 ALT 38 U/L (14-59) 05/11/19 14:20 Alkaline Phosphatase 46 U/L (46-116) 05/11/19 14:20 Creatine Kinase 157 U/L (26-192) 05/12/19 10:13 Troponin I < 0.05 ng/Ml (<0.06) 05/11/19 14:20 NT-Pro-B Natriuret Pep 344 pg/mL (<300) H 05/11/19 16:30 Total Protein 7.7 g/dL (6.4-8.2) 05/11/19 14:20 Albumin 2.0 g/dL (3.4-5.0) L 05/11/19 14:20 Procalcitonin 0.1 ng/mL 05/12/19 10:13 Urine Color Yellow (Yellow) 05/11/19 17:45 Urine Clarity Cloudy (Clear) 05/11/19 17:45 Urine pH 6.0 (5-8) 05/11/19 17:45 Ur Specific [place] 1.025 (1.005-1.025) 05/11/19 17:45 Urine Protein 30 mg/dL (Negative) H 05/11/19 17:45 Urine Ketones Trace mg/dL (Negative) H 05/11/19 17:45 Urine Blood Small (Negative) H 05/11/19 17:45 Urine Nitrite Positive (Negative) H 05/11/19 17:45 Urine Bilirubin Negative (Negative) 05/11/19 17:45 Urine Urobilinogen 0.2 EU/dL (Up TO 0.2) 05/11/19 17:45 Ur Leukocyte Esterase Small (Negative) H 05/11/19 17:45 Urine RBC 5-10 HPF (0-2) H 05/11/19 17:45 Urine WBC 10-20 HPF (0-5) H 05/11/19 17:45 Ur Epithelial Cells Many HPF (Negative) 05/11/19 17:45 Urine Crystals Negative HPF (Negative) 05/11/19 17:45 Urine Bacteria Many HPF (Negative) 05/11/19 17:45 Urine Casts Negative LPF (Negative) 05/11/19 17:45 Urine Mucus Negative (Negative) 05/11/19 17:45 Urine Other Negative (Negative) 05/11/19 17:45 Ur Culture Indicated? No/sq. contamination 05/11/19 17:45 Urine Glucose Negative mg/dL (Negative) 05/11/19 17:45 Path Cons Comment 05/11/19 14:20 COVID-19 still pending
[2019-05-12] MEDS: Furosemide 40 MG/4 ML VIAL IVP (17:52)
[2019-05-12] MEDS: AZITHROMYCIN 500 MG in Normal Saline 250 ML 250 MG IVPB (17:52)
[2019-05-12] MEDS: Heparin 5,000 UNITS/ML VIAL 5000 UNITS SC (18:13)
[2019-05-12 18:19] LABS: Legionella Ag Detection Urine Negative (Negative)
[2019-05-12] MEDS: Lidocaine 2% Jelly 6 ML SYR (20:54)
[2019-05-12] MEDS: Melatonin 3 MG TAB PO (21:37)
[2019-05-13] VITALS (13 sets, daily range): BP systolic 138–156; BP diastolic 66–82; PULSE 82–96; RESP 2–32; TEMP 36.7–37.1; O2SAT 90–96
[2019-05-13] MEDS: methylPREDNISolone SUCC 40 MG VIAL IVP ×3 (02:54→17:45)
[2019-05-13] MEDS: Normal Saline Flush 10 ML SYR IVP ×4 (02:54→15:46)
[2019-05-13] MEDS: Heparin 5,000 UNITS/ML VIAL 5000 UNITS SC ×2 (07:00→17:44)
[2019-05-13 07:48] LABS: Abs Immature Grans 0.04 k/cumm (0.0-0.09); Anion Gap 9.5 mmol/L (3-11); BUN 28 mg/dL (7-18); CO2 22.5 mmol/L (21.0-32.0); CREATININE 1.52 mg/dL (0.55-1.02); Calcium 8.2 mg/dL (8.5-10.1); Chloride 95 mmol/L (98-107); Estimated GFR 33.25 (mL/min/1.73m2); Glucose 90 mg/dL (74-106); HCT 29.6 % (36.0-46.0); HGB 9.7 g/dL (12.0-15.5); Magnesium 2.1 mg/dL (1.8-2.4); Mean Corp. HGB Concentration 32.8 g/dL (32.0-36.0); Mean Corpuscular Hemoglobin 27.8 pg (27.0-33.0); Mean Corpuscular Volume 84.8 fL (80-95); Mean Platelet Volume 9.7 fL (8.0-11.0); Platelet Count 324 x1000/uL (130-400); Potassium 5.2 mmol/L (3.5-5.1); RBC 3.49 m/cumm (4.00-5.20); RBC Distribution Width 13.2 % (11.7-14.6); Sodium 127 mmol/L (136-145)
[2019-05-13] MEDS: Furosemide 20 MG/2 ML VIAL IVP (08:17)
[2019-05-13] MEDS: Hydroxychloroquine 200 MG TAB PO (08:17)
[2019-05-13] MEDS: Famotidine 20 MG TAB PO (08:17)
[2019-05-13 08:27] LABS: Absolute Lymphocyte Count 1.22 k/cumm (1.2-3.4); Absolute Monocyte Count 0.49 k/cumm (0.11-0.7); Absolute Neutrophil Count 10.49 k/cumm (1.2-6.7); Atypical Lymphocytes % 3; Diff Comment Manual Differential; RBC Morphology Normal
[2019-05-13] MEDS: Ipratropium/Albuterol 4 GM 120 PUFF INH IH ×3 (09:24→15:54)
[2019-05-13] MEDS: Albuterol HFA 8 GM 60 PUFF INH IH ×3 (09:30→22:00)
[2019-05-13] MEDS: Albuterol 2.5 MG/3 ML INH SOLN VIAL UPD (10:30)
--- NOTE | 2019-05-13 11:18 | DI.CT_ITS ---
EXAM: CT CHEST WO CLINICAL HISTORY: suspected COVID -19, rule out ARDS TECHNIQUE: CT examination of the chest was performed without contrast administration. COMPARISON: XR PORTABLE CHEST AP from 05/11/2019 FINDINGS: Images obtained through the upper abdomen show apparent prior cholecystectomy, tiny indeterminate ri ght hepatic lobe lesion, and no significant biliary dilatation. Calcified granulomas of the spleen a re noted. Visualized portions of adrenals, kidneys and pancreas are unremarkable. Cardiac size is within normal limits. No mediastinal or hilar adenopathy. There are predominantly ba silar areas of honeycombing consistent with the patient's reported diagnosis of pulmonary fibrosis. Additional areas of honeycombing are noted in upper lobes, right greater than left. Pleural thickeni ng is noted in the right lung apex. There is also diffuse centrilobular and subpleural emphysema. There are scattered tree-in-bud opacities predominantly in the left lung base. Scattered small focal areas of ground-glass and reticular opacity are seen in the upper lobes, acute versus chronic. No f ocal lobar consolidation, no pulmonary edema, no pleural effusion. There is apparent traction bronchiectasis associated with areas of honeycombing. Otherwise tracheobr onchial tree appears intact. IMPRESSION: 1. No evidence of ARDS or pulmonary edema. 2. Severe widespread chronic changes consistent with known diagnosis of pulmonary fibrosis with multi ple areas of honeycombing. 3. Scattered ground-glass and reticular opacities are nonspecific and may represent acute or chronic process. 4. Tree-in-bud opacities predominantly in left lower lobe, possibility of mild bronchopneumonia is ra ised, of uncertain etiology. No specific findings to suggest Covid 19 infection.
--- NOTE | 2019-05-13 11:28 | PDOC.CMIN ---
- If Service Date Differs Date of service: 05/13/19 Time of Service: 11:28 Care Management Initial Assess REASON FOR HOSPITALIZATION:: Pneumonia
--- NOTE | 2019-05-13 13:19 | W.NUTCONSULT ---
Date of service: 05/13/19 Time of Service: 13:20 Nutritional Consult ASSESSMENT: 78 year old female admitted with CHF, COPD exacerbation, Covid-10 rule out. Also with PNA, hypontremia, acute kidney injury. Following Renal Diet with poor intake (25%). Estimated Needs: 6514-3491 kcal, 74-88 grams protein, 2220ml fluid. At this time is meeting only 25% of nutrient needs. Recommend providing Ensure BID to supplement intake. labs and meds reviewed. INTERVENTION: ensure BID MONITORING AND EVALUATION: weight, po intake, labs Time Spent in Nutritional Counseling and Treatment: 0 time spent face to face
[2019-05-13] MEDS: cefTRIAXone 1 GM/50 ML BAG IVPB (15:40)
[2019-05-13 16:20] LABS: COVID-19 RT-PCR Result Not Detected
--- NOTE | 2019-05-13 16:51 | PGE_ITS ---
Date of Service Date of service: 05/13/19 Time of Service: 16:51 Assessment and Plan Assessment and plan (1) Acute exacerbation of CHF (congestive heart failure): Status: Acute Assessment and plan: Switch to lasix gtt, monitoring daily weights, strict I/O's. Should have an echo. (2) Dilutional hyponatremia: Status: Acute Assessment and plan: Together with hypoalbuminemia, suggestive of cirrhosis. Would benefit from outpatient workup. meanwhile diurese. Check TSH Monitor sodium as diuresing. Hold Peter-i. (3) GANESH (acute kidney injury): Status: Acute Assessment and plan: Continue to hold peter-i. Cr has improved with diuresis, ?pulm. HTN - check echo. (4) Acute exacerbation of chronic obstructive pulmonary disease (COPD): Status: Acute Assessment and plan: Continue IV steroids; nebs reinstituted. (5) CAP (community acquired pneumonia): Status: Acute Assessment and plan: Most likely bacterial PNA. COVID 19 negative. No clear evidence for PNA on CT, but could have a bacterial component to exacerbation - so continue abx. (6) Hypoxia: Status: Acute Assessment and plan: Worse this morning, better now with institution of lasix gtt - continue. Due to CHF, COPD exacerbation and pneumonia. (7) Hypoalbuminemia: Status: Acute Assessment and plan: ?cirrhosis. Will need outpatient follow up. (8) UTI (urinary tract infection): Status: Acute Assessment and plan: present on admission. C&S pending Continue empiric ceftriaxone (9) DVT prophylaxis: Status: Acute Assessment and plan: Continue SC heparin (10) Discharge planning issues: Status: Acute Assessment and plan: DNR/DNI Continues to require hospitalization Subjective Subjective Interval history since last seen: This morning, felt worse - short of breath. Better since being started on lasix gtt. CT chest actually looks better today, per my discussion with [facility] pulmonology, than it did in 2018. She denies dizziness, chest pain, nausea, vomiting. COVID 19 testing came back negative. Exam Narrative Exam Narrative: General: Very pleasant elderly female, A&Ox3, laying comfortably in bed, not in acute distress HEENT: EOMI, MMM Heart: RRR, no m/r/g Lungs: decrease in crackles from yesterday; rhonchi improved Abdomen: soft, nontender, nondistended Extremities: no e/c/c BLE's Objective Objective Clinical Data: Abnormal lab results 05/13/19 05/13/19 Range/Units 07:22 07:22 WBC 12.20 H (4.4-10.8) k/cumm RBC 3.49 L (4.00-5.20) m/cumm Hgb 9.7 L (12.0-15.5) g/dL Hct 29.6 L (36.0-46.0) % Absolute Neutrophils 10.49 H (1.2-6.7) k/cumm Sodium 127 L (136-145) mmol/L Potassium 5.2 H (3.5-5.1) mmol/L Chloride 95 L (98-107) mmol/L BUN 28 H (7-18) mg/dL Creatinine 1.52 H (0.55-1.02) mg/dL Calcium 8.2 L (8.5-10.1) mg/dL Vital Signs Temperature 37.1 C 05/13/19 15:46 Temperature Source Tympanic 05/13/19 15:46 Pulse 88 05/13/19 15:46 Pulse Rhythm Regular 05/13/19 08:20 Pulse 95 H 05/11/19 18:30 Respiratory Rate 24 05/13/19 15:55 Respiratory Effort 05/13/19 15:55 Respiratory Depth Shallow 05/13/19 15:55 Respiratory Pattern Normal 05/13/19 15:55 Blood Pressure 148/68 H 05/13/19 15:46 Blood Pressure Mean 67 05/11/19 17:30 Blood Pressure Position Sitting 05/11/19 13:48 Pulse Oximetry 94 L 05/13/19 16:25 Oxygen Delivery Method Nasal Cannula 05/13/19 16:25 Oxygen Flow Rate 3.5 05/13/19 16:25 Pain Level 0 05/13/19 02:55 Comment 05/12/19 15:05 Intake & Output 05/12/19 05/13/19 05/13/19 23:59 11:59 23:59 Intake Total 550 / 1850 Output Total 1850 / 1850 800 / 1450 650 / 1450 Balance -1300 / 0 -800 / -1450 -650 / -1450 Intake: IV 50 / 1050 Oral 500 / 800 Output: Urine 1850 / 1850 800 / 1450 650 / 1450 Other: Urine Color Pale Pale Yellow Yellow Urine Appearance Clear Clear Clear Urine Odor None Comment lg volume incontinet. Attempting cathater Stool Size Small Stool Characteristics Soft Formed Brown Bloody Voiding Methods Diaper Laboratory Results WBC 12.20 k/cumm (4.4-10.8) H 05/13/19 07:22 RBC 3.49 m/cumm (4.00-5.20) L 05/13/19 07:22 Hgb 9.7 g/dL (12.0-15.5) L 05/13/19 07:22 Hct 29.6 % (36.0-46.0) L 05/13/19 07:22 MCV 84.8 fL (80-95) 05/13/19 07: MCH 27.8 pg (27.0-33.0) 05/13/19 07: MCHC 32.8 g/dL (32.0-36.0) 05/13/19 07: RDW 13.2 % (11.7-14.6) 05/13/19 07:22 Plt Count 324 x1000/uL (130-400) 05/13/19 07:22 MPV 9.7 fL (8.0-11.0) 05/13/19 07:22 Immature Gran % 0.0 % 05/13/19 07: Neutrophils % 86.0 05/13/19 07:22 Band Neutrophils % 2.0 % 05/11/19 14:20 Lymphocytes % 7.0 05/13/19 07: Atypical Lymphs % 3 05/13/19 07:22 Monocytes % 4.0 05/13/19 07:22 Eosinophils % 0.0 05/13/19 07:22 Basophils % 0.0 05/13/19 07:22 Absolute Neutrophils 10.49 k/cumm (1.2-6.7) H 05/13/19 07:22 Absolute Lymphocytes 1.22 k/cumm (1.2-3.4) 05/13/19 07:22 Absolute Monocytes 0.49 k/cumm (0.11-0.7) 05/13/19 07: Absolute Eosinophils 0.00 k/cumm (0.0-0.7) 05/13/19 07: Absolute Basophils 0.00 k/cumm (0.0-0.2) 05/13/19 07:22 Differential Comment Manual differential 05/13/19 07:22 Other Cell Type 05/11/19 14:20 RBC Morphology Normal 05/13/19 07:22 Sodium 127 mmol/L (136-145) L 05/13/19 07:22 Potassium 5.2 mmol/L (3.5-5.1) H 05/13/19 07:22 Chloride 95 mmol/L (98-107) L 05/13/19 07:22 Carbon Dioxide 22.5 mmol/L (21.0-32.0) 05/13/19 07:22 Anion Gap 9.5 mmol/L (3-11) 05/13/19 07:22 BUN 28 mg/dL (7-18) H 05/13/19 07:22 Creatinine 1.52 mg/dL (0.55-1.02) H 05/13/19 07:22 Estimated GFR/1.73 m2 33.25 (mL/min/1.73m2) 05/13/19 07:22 Glucose 90 mg/dL (74-106) D 05/13/19 07:22 Lactate 1.3 mmol/L (0.6-1.4) 05/12/19 10:13 Calcium 8.2 mg/dL (8.5-10.1) L 05/13/19 07:22 Magnesium 2.1 mg/dL (1.8-2.4) 05/13/19 07:22 Total Bilirubin 0.5 mg/dL (0.2-1.0) 05/11/19 14:20 AST 47 U/L (15-37) H 05/11/19 14:20 ALT 38 U/L (14-59) 05/11/19 14:20 Alkaline Phosphatase 46 U/L (46-116) 05/11/19 14:20 Creatine Kinase 157 U/L (26-192) 05/12/19 10:13 Troponin I < 0.05 ng/Ml (<0.06) 05/11/19 14:20 NT-Pro-B Natriuret Pep 344 pg/mL (<300) H 05/11/19 16:30 Total Protein 7.7 g/dL (6.4-8.2) 05/11/19 14:20 Albumin 2.0 g/dL (3.4-5.0) L 05/11/19 14:20 Procalcitonin 0.1 ng/mL 05/12/19 10:13 Urine Color Yellow (Yellow) 05/11/19 17:45 Urine Clarity Cloudy (Clear) 05/11/19 17:45 Urine pH 6.0 (5-8) 05/11/19 17:45 Ur Specific [place] 1.025 (1.005-1.025) 05/11/19 17:45 Urine Protein 30 mg/dL (Negative) H 05/11/19 17:45 Urine Ketones Trace mg/dL (Negative) H 05/11/19 17:45 Urine Blood Small (Negative) H 05/11/19 17:45 Urine Nitrite Positive (Negative) H 05/11/19 17:45 Urine Bilirubin Negative (Negative) 05/11/19 17:45 Urine Urobilinogen 0.2 EU/dL (Up TO 0.2) 05/11/19 17:45 Ur Leukocyte Esterase Small (Negative) H 05/11/19 17:45 Urine RBC 5-10 HPF (0-2) H 05/11/19 17:45 Urine WBC 10-20 HPF (0-5) H 05/11/19 17:45 Ur Epithelial Cells Many HPF (Negative) 05/11/19 17:45 Urine Crystals Negative HPF (Negative) 05/11/19 17:45 Urine Bacteria Many HPF (Negative) 05/11/19 17:45 Urine Casts Negative LPF (Negative) 05/11/19 17:45 Urine Mucus Negative (Negative) 05/11/19 17:45 Urine Other Negative (Negative) 05/11/19 17:45 Ur Culture Indicated? No/sq. contamination 05/11/19 17:45 Urine Glucose Negative mg/dL (Negative) 05/11/19 17:45 Coronavirus (PCR) Not detected 05/11/19 14:10 Urine Legionella Ag Negative (Negative) 05/11/19 16:40 Path Cons Comment 05/11/19 14:20 CT chest: 1. No evidence of ARDS or pulmonary edema. 2. Severe widespread chronic changes consistent with known diagnosis of pulmonary fibrosis with multiple areas of honeycombing. 3. Scattered ground-glass and reticular opacities are nonspecific and may represent acute or chronic process. 4. Tree-in-bud opacities predominantly in left lower lobe, possibility of mild bronchopneumonia is raised, of uncertain etiology. No specific findings to suggest Covid 19 infection.
[2019-05-13] MEDS: AZITHROMYCIN 500 MG in Normal Saline 250 ML 250 MG IVPB (17:44)
[2019-05-13 19:17] LABS: FREE T4 1.45 ng/dL (0.76-1.46); TSH 1.14 uIU/mL (0.36-3.74)
[2019-05-13] MEDS: Albuterol/Ipratropium 3 ML UPD VIAL UPD (23:50)
[2019-05-13] MEDS: Melatonin 3 MG TAB PO (23:52)
[2019-05-13] MEDS: Acetaminophen 325 MG TAB 650 MG PO (23:52)
[2019-05-14] VITALS (8 sets, daily range): BP systolic 153–163; BP diastolic 7–83; PULSE 77–89; RESP 1–20; TEMP 36.7–37.2; O2SAT 95–99
[2019-05-14] MEDS: methylPREDNISolone SUCC 40 MG VIAL IVP ×3 (03:32→18:15)
[2019-05-14] MEDS: Normal Saline Flush 10 ML SYR IVP ×3 (03:34→18:15)
[2019-05-14] MEDS: Heparin 5,000 UNITS/ML VIAL 5000 UNITS SC ×2 (06:58→18:16)
[2019-05-14] MEDS: Albuterol/Ipratropium 3 ML UPD VIAL UPD ×3 (06:58→18:13)
[2019-05-14] MEDS: Hydroxychloroquine 200 MG TAB PO (08:35)
[2019-05-14] MEDS: Famotidine 20 MG TAB PO (08:35)
[2019-05-14 09:16] LABS: Abs Immature Grans 0.03 k/cumm (0.0-0.09); Absolute Lymphocyte Count 0.47 k/cumm (1.2-3.4); Absolute Monocyte Count 0.32 k/cumm (0.11-0.7); Absolute Neutrophil Count 8.15 k/cumm (1.2-6.7); HCT 29.9 % (36.0-46.0); HGB 9.8 g/dL (12.0-15.5); Immature Grans % 0.3 %; Lymphocytes % 5.2; Mean Corp. HGB Concentration 32.8 g/dL (32.0-36.0); Mean Corpuscular Hemoglobin 27.5 pg (27.0-33.0); Mean Platelet Volume 9.6 fL (8.0-11.0); Monocytes % 3.6; Neutrophils % 90.9; Platelet Count 348 x1000/uL (130-400); RBC 3.56 m/cumm (4.00-5.20); RBC Distribution Width 13.1 % (11.7-14.6); White Blood Cell Count 8.97 k/cumm (4.4-10.8)
[2019-05-14 09:25] LABS: Anion Gap 8.6 mmol/L (3-11); BUN 42 mg/dL (7-18); CO2 25.4 mmol/L (21.0-32.0); CREATININE 1.82 mg/dL (0.55-1.02); Calcium 8.5 mg/dL (8.5-10.1); Chloride 94 mmol/L (98-107); Estimated GFR 27.01 (mL/min/1.73m2); Glucose 200 mg/dL (74-106); Magnesium 1.9 mg/dL (1.8-2.4); Potassium 4.9 mmol/L (3.5-5.1); Sodium 128 mmol/L (136-145)
--- NOTE | 2019-05-14 11:30 | PGE_ITS ---
Date of Service Date of service: 05/14/19 Time of Service: 11:30 Assessment and Plan Assessment and plan (1) Acute exacerbation of CHF (congestive heart failure): Status: Acute Assessment and plan: Appears to be responding to lasix gtt. her weight this morning is down 6 kg from 3 days prior. 24-hour fluid balance is negative though not as dramatically. Monitoring daily weights, strict I/O's. Should have an echo but it may be until Thursday. (2) Dilutional hyponatremia: Status: Acute Assessment and plan: Improving slowly. Continue with diuresis and monitoring. I think this is secondary to congestive heart failure, but I do agree that with hypoalbuminemia hepatic cirrhosis is possible. Would benefit from outpatient workup. Holding Peter-i. (3) GANESH (acute kidney injury): Status: Acute Assessment and plan: Continue to hold peter-i. Associate with CHF. Creatinine increased slightly today after improving slightly yesterday. I still think she needs more diuresis, but will continue to monitor. (4) Acute exacerbation of chronic obstructive pulmonary disease (COPD): Status: Acute Assessment and plan: Continue IV steroids and antibiotics; nebs reinstituted. (5) CAP (community acquired pneumonia): Status: Acute Assessment and plan: Most likely bacterial PNA. COVID 19 negative. No clear evidence for PNA on CT, but could have a bacterial component to exacerbation - so continue abx. (6) Hypoxia: Status: Acute Assessment and plan: Worse this morning, better now with institution of lasix gtt - continue. Due to CHF, COPD exacerbation and pneumonia. (7) Hypoalbuminemia: Status: Acute Assessment and plan: ?cirrhosis. She did have a slight AST elevation on presentation, but her platelets have been reassuring. Nutrition may also be an issue. Will need outpatient follow up. (8) UTI (urinary tract infection): Status: Acute Assessment and plan: C&S pending showing mixed ranjit, so I do not she has a UTI. Any possible infection would be covered by antibiotics for pneumonia. (9) DVT prophylaxis: Status: Acute Assessment and plan: Continue SC heparin (10) Discharge planning issues: Status: Acute Assessment and plan: DNR/DNI Continues to require hospitalization Subjective Subjective Patient reports: no new complaints, tolerating a regular diet, voiding w/o difficulty and nausea; denies diarrhea, vomiting and fever Interval history since last seen: 24 hr: negative COVID 19 She feels like her breathing is slightly improved today. Exam Narrative Exam Narrative: General: Very pleasant elderly female, A&Ox3, laying comfortably in bed with oxygen at 3 L per nasal cannula, not in acute distress. Speaking in full sentences HEENT: Conjunctive are clear, MMM Heart: RRR, no m/r/g Lungs: Dry sounding crackles in bilateral posterior lung phelps one third up; no wheezing. No distress at rest. Abdomen: soft, nontender, nondistended Extremities: no e/c/c BLE's Objective Objective Clinical Data: Abnormal lab results 05/14/19 05/14/19 Range/Units 09:05 09:05 RBC 3.56 L (4.00-5.20) m/cumm Hgb 9.8 L (12.0-15.5) g/dL Hct 29.9 L (36.0-46.0) % Absolute Neutrophils 8.15 H (1.2-6.7) k/cumm Absolute Lymphocytes 0.47 L (1.2-3.4) k/cumm Sodium 128 L (136-145) mmol/L Chloride 94 L (98-107) mmol/L BUN 42 H D (7-18) mg/dL Creatinine 1.82 H (0.55-1.02) mg/dL Glucose 200 H D (74-106) mg/dL Vital Signs Temperature 37.2 C 05/14/19 07:47 Temperature Source Tympanic 05/14/19 07:47 Pulse 80 05/14/19 07:47 Pulse Rhythm Regular 05/14/19 08:25 Pulse 95 H 05/11/19 18:30 Respiratory Rate 17 05/14/19 07:47 Respiratory Effort 05/14/19 08:25 Respiratory Depth Normal 05/14/19 08:25 Respiratory Pattern Normal 05/14/19 08:25 Blood Pressure 163/74 H 05/14/19 07:47 Blood Pressure Mean 67 05/11/19 17:30 Blood Pressure Position Sitting 05/11/19 13:48 Pulse Oximetry 99 05/14/19 07:47 Oxygen Delivery Method Nasal Cannula 05/14/19 07:47 Oxygen Flow Rate 2 05/14/19 07:47 Pain Level 0 05/14/19 07:47 Comment 03/19/20 15:05 Intake & Output 05/13/19 05/13/19 05/14/19 11:59 23:59 11:59 Intake Total 450 / 6473.252 6472.125 / 1724.125 Output Total 800 / 2600 1800 / 2600 50 / 50 Balance -350 / -875.875 -525.875 / -875.875 -50 / -50 Weight 67.9 kg Intake: IV 274.125 / 274.125 Oral 450 / 1450 1000 / 1450 Output: Urine 800 / 2600 1800 / 2600 Stool 50 / 50 Other: Urine Color Pale Pale Yellow Yellow Urine Appearance Clear Clear Clear Stool Size Small Stool Characteristics Formed Brown Laboratory Results WBC 8.97 k/cumm (4.4-10.8) 05/14/19 09:05 RBC 3.56 m/cumm (4.00-5.20) L 05/14/19 09:05 Hgb 9.8 g/dL (12.0-15.5) L 05/14/19 09:05 Hct 29.9 % (36.0-46.0) L 05/14/19 09:05 MCV 84.0 fL (80-95) 05/14/19 09:05 MCH 27.5 pg (27.0-33.0) 05/14/19 09:05 MCHC 32.8 g/dL (32.0-36.0) 05/14/19 09:05 RDW 13.1 % (11.7-14.6) 05/14/19 09:05 Plt Count 348 x1000/uL (130-400) 05/14/19 09:05 MPV 9.6 fL (8.0-11.0) 05/14/19 09:05 Immature Gran % 0.3 % 05/14/19 09:05 Neutrophils % 90.9 05/14/19 09:05 Band Neutrophils % 2.0 % 05/11/19 14:20 Lymphocytes % 5.2 05/14/19 09:05 Atypical Lymphs % 3 05/13/19 07:22 Monocytes % 3.6 05/14/19 09:05 Eosinophils % 0.0 05/14/19 09:05 Basophils % 0.0 05/14/19 09:05 Absolute Neutrophils 8.15 k/cumm (1.2-6.7) H 05/14/19 09:05 Absolute Lymphocytes 0.47 k/cumm (1.2-3.4) L 05/14/19 09:05 Absolute Monocytes 0.32 k/cumm (0.11-0.7) 05/14/19 09:05 Absolute Eosinophils 0.00 k/cumm (0.0-0.7) 05/14/19 09:05 Absolute Basophils 0.00 k/cumm (0.0-0.2) 05/14/19 09:05 Differential Comment Manual differential 05/13/19 07:22 Other Cell Type 05/11/19 14:20 RBC Morphology Normal 05/13/19 07:22 Sodium 128 mmol/L (136-145) L 05/14/19 09:05 Potassium 4.9 mmol/L (3.5-5.1) 05/14/19 09:05 Chloride 94 mmol/L (98-107) L 05/14/19 09:05 Carbon Dioxide 25.4 mmol/L (21.0-32.0) 05/14/19 09:05 Anion Gap 8.6 mmol/L (3-11) 05/14/19 09:05 BUN 42 mg/dL (7-18) H D 05/14/19 09:05 Creatinine 1.82 mg/dL (0.55-1.02) H 05/14/19 09:05 Estimated GFR/1.73 m2 27.01 (mL/min/1.73m2) 05/14/19 09:05 Glucose 200 mg/dL (74-106) H D 05/14/19 09:05 Lactate 1.3 mmol/L (0.6-1.4) 05/12/19 10:13 Calcium 8.5 mg/dL (8.5-10.1) 05/14/19 09:05 Magnesium 1.9 mg/dL (1.8-2.4) 05/14/19 09:05 Total Bilirubin 0.5 mg/dL (0.2-1.0) 05/11/19 14:20 AST 47 U/L (15-37) H 05/11/19 14:20 ALT 38 U/L (14-59) 05/11/19 14:20 Alkaline Phosphatase 46 U/L (46-116) 05/11/19 14:20 Creatine Kinase 157 U/L (26-192) 05/12/19 10:13 Troponin I < 0.05 ng/Ml (<0.06) 05/11/19 14:20 NT-Pro-B Natriuret Pep 344 pg/mL (<300) H 05/11/19 16:30 Total Protein 7.7 g/dL (6.4-8.2) 05/11/19 14:20 Albumin 2.0 g/dL (3.4-5.0) L 05/11/19 14:20 Procalcitonin 0.1 ng/mL 05/12/19 10:13 TSH 1.14 uIU/mL (0.36-3.74) 05/13/19 07:22 Free T4 1.45 ng/dL (0.76-1.46) 05/13/19 07:22 Urine Color Yellow (Yellow) 05/11/19 17:45 Urine Clarity Cloudy (Clear) 05/11/19 17:45 Urine pH 6.0 (5-8) 05/11/19 17:45 Ur Specific [place] 1.025 (1.005-1.025) 05/11/19 17:45 Urine Protein 30 mg/dL (Negative) H 05/11/19 17:45 Urine Ketones Trace mg/dL (Negative) H 05/11/19 17:45 Urine Blood Small (Negative) H 05/11/19 17:45 Urine Nitrite Positive (Negative) H 05/11/19 17:45 Urine Bilirubin Negative (Negative) 05/11/19 17:45 Urine Urobilinogen 0.2 EU/dL (Up TO 0.2) 05/11/19 17:45 Ur Leukocyte Esterase Small (Negative) H 05/11/19 17:45 Urine RBC 5-10 HPF (0-2) H 05/11/19 17:45 Urine WBC 10-20 HPF (0-5) H 05/11/19 17:45 Ur Epithelial Cells Many HPF (Negative) 05/11/19 17:45 Urine Crystals Negative HPF (Negative) 05/11/19 17:45 Urine Bacteria Many HPF (Negative) 05/11/19 17:45 Urine Casts Negative LPF (Negative) 05/11/19 17:45 Urine Mucus Negative (Negative) 05/11/19 17:45 Urine Other Negative (Negative) 05/11/19 17:45 Ur Culture Indicated? No/sq. contamination 05/11/19 17:45 Urine Glucose Negative mg/dL (Negative) 05/11/19 17:45 Coronavirus (PCR) Not detected 05/11/19 14:10 Urine Legionella Ag Negative (Negative) 05/11/19 16:40 Path Cons Comment 05/11/19 14:20
[2019-05-14] MEDS: Ondansetron 4 MG/2 ML VIAL IVP (13:37)
--- NOTE | 2019-05-14 16:13 | PDOC.CMPRO ---
Care Management Progress Note Paula ruled out for COVID-19. She is lying in her bed watching Sarah when meets with her. She has oxygen on and reports not having O2 at baseline in her home. She reports living with her partner, Greyson Gutierrez, her grandson and great grandson in [place]. She verbalizes understanding of the visitation policy and reports speaking to her family daily on the phone. She laughs when wondering if there will be food in the house when she returns and shares that she is looking forward to being able to discharge and return home. She says I'm ready now. She does report she is requiring assistance to the commode and the bathroom at home is close to her bed but she would like to be independent with transfers upon discharge. She reports her family will transport her home upon discharge. Her PCP is Regan Álvarez of [facility]. Her Advance Directives are on file and list her daughter, Ju Leroy as agent and her son, Jeffrey Leon as alternate. She reports having [facility] and [facility], and states filling her prescriptions at [facility]. She reports she likes to drive once in awhile, when its nice out.
[2019-05-14] MEDS: cefTRIAXone 1 GM/50 ML BAG IVPB (16:25)
[2019-05-14] MEDS: AZITHROMYCIN 500 MG in Normal Saline 250 ML 250 MG IVPB (18:16)
[2019-05-14] MEDS: Albuterol HFA 8 GM 60 PUFF INH IH (19:10)
[2019-05-14] MEDS: Melatonin 3 MG TAB PO (20:29)
[2019-05-15] VITALS (11 sets, daily range): BP systolic 138–157; BP diastolic 64–75; PULSE 73–117; RESP 2–20; TEMP 36.4–36.7; O2SAT 94–98
[2019-05-15] MEDS: Albuterol/Ipratropium 3 ML UPD VIAL UPD ×3 (00:39→11:32)
[2019-05-15] MEDS: methylPREDNISolone SUCC 40 MG VIAL IVP (01:12)
[2019-05-15] MEDS: Normal Saline Flush 10 ML SYR IVP ×2 (01:12→15:46)
[2019-05-15] MEDS: Heparin 5,000 UNITS/ML VIAL 5000 UNITS SC ×2 (06:08→17:37)
[2019-05-15 06:39] LABS: Anion Gap 7.1 mmol/L (3-11); BUN 42 mg/dL (7-18); CO2 28.9 mmol/L (21.0-32.0); CREATININE 1.84 mg/dL (0.55-1.02); Calcium 8.3 mg/dL (8.5-10.1); Chloride 91 mmol/L (98-107); Estimated GFR 26.67 (mL/min/1.73m2); Glucose 181 mg/dL (74-106); Potassium 4.8 mmol/L (3.5-5.1); Sodium 127 mmol/L (136-145)
[2019-05-15] MEDS: Hydroxychloroquine 200 MG TAB PO (08:34)
[2019-05-15] MEDS: Famotidine 20 MG TAB PO (08:34)
[2019-05-15] MEDS: predniSONE 20 MG TAB 60 MG PO (10:37)
--- NOTE | 2019-05-15 11:28 | W.PM.PROGNOT ---
Date of Service Date of service: 05/15/19 Time of Service: 11:29 Assessment and Plan Assessment and plan (1) Acute exacerbation of CHF (congestive heart failure): Status: Acute Assessment and plan: Appears to be responding to lasix gtt. 24-hour fluid balance again negative. I do not see a weight documented so we will try to get this. Continue monitoring daily weights, strict I/O's. We will try to transition to scheduled IV Lasix off the drip today and see how she does. Should have an echo but it will not be done until Thursday. Weaning oxygen supplementation this morning down to 1 L. I would like to send her home when we get her off oxygen to finish treatment at home. (2) Dilutional hyponatremia: Status: Acute Assessment and plan: Improved from admission, similar to yesterday. Continue with diuresis and monitoring. I did clarify that she has chronic hyponatremia in the outpatient record with sodiums typically around 130. I think this is secondary to congestive heart failure, but I do agree that with hypoalbuminemia hepatic cirrhosis is possible. Would benefit from outpatient workup. (3) GANESH (acute kidney injury): Status: Acute Assessment and plan: To clarify, this is a mild acute kidney injury on chronic renal insufficiency with baseline creatinine around 1.4 per the outpatient record. Continue to hold mili-i. Associate with CHF. Creatinine stable even though she is on Lasix drip. I still think she needs more diuresis, but will continue to monitor. (4) Acute exacerbation of chronic obstructive pulmonary disease (COPD): Status: Acute Assessment and plan: Continue IV steroids and antibiotics; nebs reinstituted. (5) CAP (community acquired pneumonia): Status: Acute Assessment and plan: Most likely bacterial PNA. COVID 19 negative. No clear evidence for PNA on CT, but could have a bacterial component to exacerbation - so continue abx. (6) Hypoalbuminemia: Status: Acute Assessment and plan: ?cirrhosis. She did have a slight AST elevation on presentation, but her platelets have been reassuring. Nutrition may also be an issue. Will need outpatient follow up. (7) DVT prophylaxis: Status: Acute Assessment and plan: Continue SC heparin (8) Discharge planning issues: Status: Acute Assessment and plan: DNR/DNI Continues to require hospitalization, can stop telemetry. Attempting to transition to oral therapies over the next day to prepare for possible discharge. Subjective Subjective Patient reports: no new complaints, feels better and tolerating a regular diet; denies bowel movement, diarrhea, vomiting and fever Interval history since last seen: 24-hour: No events Patient states she is feeling a little bit better in terms of breathing and energy, though still not back to baseline. Still some cough, not currently productive. She feels like she needs to have a bowel movement but has not had one. Exam Narrative Exam Narrative: General: Very pleasant elderly female, A&Ox3, laying comfortably in bed with oxygen at 1 L per nasal cannula, not in acute distress, though respiratory rate does increase when speaking in full sentences HEENT: Conjunctive are clear, MMM. I do not appreciate elevated jugular venous distention. Heart: RRR, no m/r/g Lungs: crackles in bilateral posterior lung phelps one third up; no wheezing. No distress at rest. Abdomen: soft, nontender, nondistended Extremities: no e/c/c BLE's Objective Objective Clinical Data: Abnormal lab results 05/15/19 Range/Units 06:16 Sodium 127 L (136-145) mmol/L Chloride 91 L (98-107) mmol/L BUN 42 H (7-18) mg/dL Creatinine 1.84 H (0.55-1.02) mg/dL Glucose 181 H (74-106) mg/dL Calcium 8.3 L (8.5-10.1) mg/dL Vital Signs Temperature 36.5 C 05/15/19 07:55 Temperature Source Tympanic 05/15/19 07:55 Pulse 86 05/15/19 07:55 Pulse Rhythm Regular 05/15/19 08:39 Pulse 95 H 05/11/19 18:30 Respiratory Rate 17 05/15/19 07:55 Respiratory Effort 05/15/19 08:39 Respiratory Depth Normal 05/15/19 08:39 Respiratory Pattern Normal 05/14/19 17:18 Blood Pressure 138/64 05/15/19 07:55 Blood Pressure Mean 67 05/11/19 17:30 Blood Pressure Position Sitting 05/11/19 13:48 Pulse Oximetry 96 05/15/19 07:55 Oxygen Delivery Method Nasal Cannula 05/15/19 07:55 Oxygen Flow Rate 3 05/15/19 07:55 Pain Level 0 05/15/19 07:55 Comment 05/12/19 15:05 Intake & Output 05/14/19 05/14/19 05/15/19 11:59 23:59 11:59 Intake Total 240 / 1686.100 1206.125 / 1284.125 297.5 / 297.5 Output Total 50 / 1050 1000 / 1050 800 / 800 Balance 190 / 234.125 44.125 / 234.125 -502.5 / -502.5 Weight 67.9 kg Intake: IV 324.125 / 324.125 72.5 / 72.5 Oral 240 / 960 720 / 960 225 / 225 Output: Urine 1000 / 1000 800 / 800 Stool 50 / 50 Other: Urine Color Yellow Yellow Urine Appearance Clear Clear Clear Comment Granados draining well, small amount of urine leaked, full charge bookkeeper Nancy notified, patient putting out clear yellow urine well, will continue to monitor. Stool Size Small Stool Characteristics Formed Brown Laboratory Results WBC 8.97 k/cumm (4.4-10.8) 05/14/19 09:05 RBC 3.56 m/cumm (4.00-5.20) L 05/14/19 09:05 Hgb 9.8 g/dL (12.0-15.5) L 05/14/19 09:05 Hct 29.9 % (36.0-46.0) L 05/14/19 09:05 MCV 84.0 fL (80-95) 05/14/19 09:05 MCH 27.5 pg (27.0-33.0) 05/14/19 09:05 MCHC 32.8 g/dL (32.0-36.0) 05/14/19 09:05 RDW 13.1 % (11.7-14.6) 05/14/19 09:05 Plt Count 348 x1000/uL (130-400) 05/14/19 09:05 MPV 9.6 fL (8.0-11.0) 05/14/19 09:05 Immature Gran % 0.3 % 05/14/19 09:05 Neutrophils % 90.9 05/14/19 09:05 Band Neutrophils % 2.0 % 05/11/19 14:20 Lymphocytes % 5.2 05/14/19 09:05 Atypical Lymphs % 3 05/13/19 07:22 Monocytes % 3.6 05/14/19 09:05 Eosinophils % 0.0 05/14/19 09:05 Basophils % 0.0 05/14/19 09:05 Absolute Neutrophils 8.15 k/cumm (1.2-6.7) H 05/14/19 09:05 Absolute Lymphocytes 0.47 k/cumm (1.2-3.4) L 05/14/19 09:05 Absolute Monocytes 0.32 k/cumm (0.11-0.7) 05/14/19 09:05 Absolute Eosinophils 0.00 k/cumm (0.0-0.7) 05/14/19 09:05 Absolute Basophils 0.00 k/cumm (0.0-0.2) 05/14/19 09:05 Differential Comment Manual differential 05/13/19 07:22 Other Cell Type 05/11/19 14:20 RBC Morphology Normal 05/13/19 07:22 Sodium 127 mmol/L (136-145) L 05/15/19 06:16 Potassium 4.8 mmol/L (3.5-5.1) 05/15/19 06:16 Chloride 91 mmol/L (98-107) L 05/15/19 06:16 Carbon Dioxide 28.9 mmol/L (21.0-32.0) 05/15/19 06:16 Anion Gap 7.1 mmol/L (3-11) 05/15/19 06:16 BUN 42 mg/dL (7-18) H 05/15/19 06:16 Creatinine 1.84 mg/dL (0.55-1.02) H 05/15/19 06:16 Estimated GFR/1.73 m2 26.67 (mL/min/1.73m2) 05/15/19 06:16 Glucose 181 mg/dL (74-106) H 05/15/19 06:16 Lactate 1.3 mmol/L (0.6-1.4) 05/12/19 10:13 Calcium 8.3 mg/dL (8.5-10.1) L 05/15/19 06:16 Magnesium 1.9 mg/dL (1.8-2.4) 05/14/19 09:05 Total Bilirubin 0.5 mg/dL (0.2-1.0) 05/11/19 14:20 AST 47 U/L (15-37) H 05/11/19 14:20 ALT 38 U/L (14-59) 05/11/19 14:20 Alkaline Phosphatase 46 U/L (46-116) 05/11/19 14:20 Creatine Kinase 157 U/L (26-192) 05/12/19 10:13 Troponin I < 0.05 ng/Ml (<0.06) 05/11/19 14:20 NT-Pro-B Natriuret Pep 344 pg/mL (<300) H 05/11/19 16:30 Total Protein 7.7 g/dL (6.4-8.2) 05/11/19 14:20 Albumin 2.0 g/dL (3.4-5.0) L 05/11/19 14:20 Procalcitonin 0.1 ng/mL 05/12/19 10:13 TSH 1.14 uIU/mL (0.36-3.74) 05/13/19 07:22 Free T4 1.45 ng/dL (0.76-1.46) 05/13/19 07:22 Urine Color Yellow (Yellow) 05/11/19 17:45 Urine Clarity Cloudy (Clear) 05/11/19 17:45 Urine pH 6.0 (5-8) 05/11/19 17:45 Ur Specific [place] 1.025 (1.005-1.025) 05/11/19 17:45 Urine Protein 30 mg/dL (Negative) H 05/11/19 17:45 Urine Ketones Trace mg/dL (Negative) H 05/11/19 17:45 Urine Blood Small (Negative) H 05/11/19 17:45 Urine Nitrite Positive (Negative) H 05/11/19 17:45 Urine Bilirubin Negative (Negative) 05/11/19 17:45 Urine Urobilinogen 0.2 EU/dL (Up TO 0.2) 05/11/19 17:45 Ur Leukocyte Esterase Small (Negative) H 05/11/19 17:45 Urine RBC 5-10 HPF (0-2) H 05/11/19 17:45 Urine WBC 10-20 HPF (0-5) H 05/11/19 17:45 Ur Epithelial Cells Many HPF (Negative) 05/11/19 17:45 Urine Crystals Negative HPF (Negative) 03/18/20 17:45 Urine Bacteria Many HPF (Negative) 05/11/19 17:45 Urine Casts Negative LPF (Negative) 05/11/19 17:45 Urine Mucus Negative (Negative) 05/11/19 17:45 Urine Other Negative (Negative) 05/11/19 17:45 Ur Culture Indicated? No/sq. contamination 05/11/19 17:45 Urine Glucose Negative mg/dL (Negative) 05/11/19 17:45 Coronavirus (PCR) Not detected 05/11/19 14:10 Urine Legionella Ag Negative (Negative) 05/11/19 16:40 Path Cons Comment 05/11/19 14:20
--- NOTE | 2019-05-15 12:58 | PDOC.CMPRO ---
Care Management Progress Note S/O: Paula remains pleasant in interaction and continues to make gains towards discharge. CM continues to follow. A: 78 year old female admitted to [facility] 05/11/19 for COPD, Pneumonia P: Paula will return home to her significant other, Greyson Gutierrez, her grandson and great grandson in [place] when she is independent with transfers upon discharge, no longer requiring oxygen and transitions to oral medications. She will follow up with her PCP, Regan Álvarez at [facility] as well as her plan of care as prescribed. She reports her family will transport her home via private vehicle upon discharge.
[2019-05-15] MEDS: cefTRIAXone 1 GM/50 ML BAG IVPB (15:47)
[2019-05-15] MEDS: Furosemide 40 MG/4 ML VIAL IVP (15:47)
[2019-05-15] MEDS: Albuterol HFA 8 GM 60 PUFF INH IH (23:26)
[2019-05-16] MEDS: Heparin 5,000 UNITS/ML VIAL 5000 UNITS SC (05:47)
[2019-05-16 06:30] VITALS: RESP 20
[2019-05-16 06:53] LABS: Anion Gap 7.6 mmol/L (3-11); BUN 44 mg/dL (7-18); CO2 28.4 mmol/L (21.0-32.0); CREATININE 1.87 mg/dL (0.55-1.02); Calcium 8.6 mg/dL (8.5-10.1); Chloride 91 mmol/L (98-107); Estimated GFR 26.18 (mL/min/1.73m2); Glucose 89 mg/dL (74-106); Potassium 4.3 mmol/L (3.5-5.1); Sodium 127 mmol/L (136-145)
[2019-05-16 07:23] VITALS: BP 152/78; PULSE 82; RESP 17; TEMP 37; O2SAT 95
[2019-05-16] MEDS: Azithromycin 250 MG TAB 500 MG PO (08:17)
[2019-05-16] MEDS: Furosemide 40 MG/4 ML VIAL IVP (08:17)
[2019-05-16] MEDS: Hydroxychloroquine 200 MG TAB PO (08:17)
[2019-05-16] MEDS: Famotidine 20 MG TAB PO (08:18)
[2019-05-16] MEDS: Normal Saline Flush 10 ML SYR IVP (08:18)
[2019-05-16] MEDS: predniSONE 20 MG TAB 60 MG PO (08:18)
[2019-05-16] MEDS: Albuterol 2.5 MG/3 ML INH SOLN VIAL UPD (09:01)
--- NOTE | 2019-05-16 09:23 | DI.US_ITS ---
APPROVED REPORT EXAM: Comprehensive 2D, Doppler, and color-flow Echocardiogram Patient Location: In-Patient Room/Bed: 229A Grocery Supervisor: Irlanda Fraser RDCS (AE) Indications: CHF Conclusion Left Ventricle : The left ventricle is normal size. The left ventricular systolic function is normal. The left ventricular ejection fraction is within the normal range. There is normal left ventricular wall thickness. There is normal LV segmental wall motion. Diastolic function is indeterminate. LVEF i s 50-55%. Right Ventricle : The right ventricle is normal size. The right ventricular systolic function is norm al. Atria : The left atrium size is normal. The right atrium size is normal. Valves: There are no hemodynamically significant valvular lesions. Great Vessels : IVC is normal in size and collapses >50% with inspiration. Estimated RVSP is 38-41 m mHg. Please see remainder of report for additional details. There is no prior echocardiogram available for comparison. Wall motion Left Ventricle The left ventricle is normal size. The left ventricular systolic function is normal. The left ventric ular ejection fraction is within the normal range. There is normal left ventricular wall thickness. T here is normal LV segmental wall motion. Diastolic function is indeterminate. There is no ventricular septal defect visualized. LVEF is 50-55%. Right Ventricle The right ventricle is normal size. The right ventricular systolic function is normal. Atria The left atrium size is normal. The right atrium size is normal. The interatrial septum is intact wit h no evidence for an atrial septal defect. Aortic Valve The aortic valve is normal in structure. Aortic valve is probably trileaflet. There is no aortic valv ular stenosis. No aortic regurgitation is present. Mitral Valve There is mitral annular calcification. No evidence of mitral valve stenosis. Trace mitral regurgitati on. Tricuspid Valve The tricuspid valve is normal in structure. There is no tricuspid valve stenosis. Trace tricuspid reg urgitation. Pulmonic Valve The pulmonary valve is normal in structure. There is no pulmonic valvular stenosis. Trace pulmonic re gurgitation. Great Vessels The aortic root is normal in size. The ascending aorta is normal in size. IVC is normal in size and c ollapses >50% with inspiration. Estimated RVSP is 38-41 mmHg. Pericardium There is no pericardial effusion. There is no pleural effusion. 2D Dimensions IVSD d PLAX 0.79 cm F: 0.6-1.0 LV Vol A2C d MOD 49.3 mL LVPW d PLAX 0.75 cm F: 0.6 - 1.0 LV Vol A4C d MOD 53.5 mL LVID d PLAX 3.63 cm F: 3.8 - 5.2 LA vol/ BSA A2C s A-L 11.0 mL/m2 LVDs 2.60 cm F: 2.2 - 3.5 LA vol/ BSA A4C s A-L 17.0 mL/m2 Ao Root d 2.68 cm F: 2.7 - 3.3 LA Vol/ BSA Biplane s A-L 14.4 mL/m2 Ao Asc Diam d 2.66 cm F: 2.3 - 3.1 LA Area A4C s MOD 12.95 cm2 LV EF Teichholz 54.9 % LA Area A2C s MOD 9.88 cm2 LVEF (Hsu's) 50.08 % F: 54 - 74 LV EF A4C MOD 47.3 % LV Volume 40.74 mL F: 46 - 106 LV EF A2C MOD 56.8 % LV Volume Index 23.28 mL/m2 F: 29 - 61 LV EF Biplane MOD 50.1 % LV Vol Biplane MOD 51.9 mL FS 27.85 % LV Diastology MV E' medial 0.070 (>0.07 m/s) E/A Ratio 0.7 LV E/e MED 9.30 (<14) MV E Vmax 0.65 (0.4-1.3 m/s) MV E' lateral 0.068 (>0.1 m/s) MV A Vmax 0.90 (0.4-1.3 m/s) LV E/e LAT 9.45 (<14) MV E/A Ratio 0.69 MV E/E' medial 9.33 MV E/E' lateral 9.49 Aortic Valve LVOT Area 2.63 cm2 AoV Area Vmax 2.33 cm2 LVOT Vmax 1.48 m/s AoV Area/ BSA (Vmax) 1.33 cm2/m2 LVOT Mean Carlos. 0.90 m/s NEIL Mean Carlos. 2.12 cm2 LVOT Peak Grad 8.8 mmHg NEIL Mean Carlos. Index 1.21 cm2/m2 LVOT Mean Grad 4.0 mmHg LVOT VTI 0.219 m LVOT Diam s 1.80 cm (M/F) 1.5-2.5 AoV Vmax 1.67 (0.5-1.3 m/s) Velocity Ratio 0.88 AoV Mean Carlos. 1.11 m/s AoV Peak Grad 11.2 mmHg LVOT SV 57.76 mL AoV Mean Grad 5.6 (<5 mmHg) AoV VTI 0.244 (0.18-0.25 m) AoV Area VTI 2.36 (2.5-4.5 cm2) AoV Area/ BSA (VTI) 1.35 cm/m2 Mitral Valve MV DT 399 (160-240 msec) MV PHT 116 msec MV Area PHT 1.90 cm2 Pulmonary Valve PV Vmax 1.55 (0.5-1.5 m/s) RVOT Peak Gr. 7.52 mmHg PV Peak Grad 9.6 mmHg RVOT Mean Gr. 3.90 mmHg PV Mean Grad 5.1 mmHg RVOT VTI 0.189 m PV VTI 0.238 m RVOT Vmax 1.37 m/s Tricuspid Valve TR Peak Grad 38.3 mmHg TR Vmax 3.10 m/s RA Pressure 3.00 mmHg RVSP (TR) 41.3 mmHg
[2019-05-16] MEDS: Polyethylene Glycol 3350 17 GM PACKET PO (10:21)
[2019-05-16] MEDS: Ipratropium/Albuterol 4 GM 120 PUFF INH IH (12:07)
[2019-05-16] MEDS: Bacitracin 1 PACKET (12:52)
--- NOTE | 2019-05-16 13:23 | DSE_ITS ---
Date of service: 05/16/19 Time of Service: 13:23 DS: Diagnosis Discharge Diagnosis (1) Acute exacerbation of CHF (congestive heart failure): Status: Acute (2) Dilutional hyponatremia: Status: Acute (3) GANESH (acute kidney injury): Status: Acute (4) Acute exacerbation of chronic obstructive pulmonary disease (COPD): Status: Acute (5) CAP (community acquired pneumonia): Status: Acute (6) Hypoalbuminemia: Status: Acute (7) DVT prophylaxis: Status: Acute (8) Discharge planning issues: Status: Acute Discharge Plan Disposition Patient Disposition: HOME Condition: Stable Discharge Details Chief Complaint: SOB Clinical Impression: Pneumonia, Acute hyponatremia Reason For Visit: COPD,PNEUMONIA Admit Date/Time: 05/11/19 18:24 Admit Provider: Terrence Stevenson Attending Provider: Terrence Stevenson Primary Care Provider: Sunny Torres ED Provider: [facility] Hospital Course: 78-year-old woman with history of immune suppression and pulmonary fibrosis related to rheumatoid arthritis treated with methotrexate and chronic prednisone who presented with 2 days of cough and shortness of breath. Coronavirus swab was taken and returned negative. Pneumococcal and Legionella antigens sent and eventually returned negative. She was treated with ceftriaxone and azithromycin along with steroids and bronchodilators. CT on admission was not consistent with ARDS or pulmonary edema. Chronic fibrotic changes and honeycombing noted. Scattered reticular opacities also noted. Study was reviewed with patient's pulmonology team at [facility], who felt like this CT was better than her baseline. Patient did improve gradually from a respiratory standpoint. On May 12 he appeared to be in fluid overload and Lasix drip was started. She diuresed well and transition to twice daily Lasix. She was sent home on 40 mg furosemide each morning, and follow-up with outpatient to assess need to continue. Echocardiogram was done the day of discharge and showed a preserved ejection fraction and some elevated right ventricular systolic pressure consistent with her lung disease. Hyponatremia was noted. This has been chronic per outpatient record and the sodium was stable at 127. Patient did not have symptoms. This is likely due to some depletion of functional intravascular volume in addition to her chronic lung disease. Fluid restriction was initiated on the day of discharge, the nabila see was instructed to follow a 1 L fluid restriction until follow-up as an outpatient. Sertraline was held, but was resumed at discharge. If sodium does not improve long-term discontinuation of sertraline should be considered. Low albumin was noted. Follow-up for possible liver dysfunction may be considered. Patient did have some elevated potassium initially, and lisinopril was held. Her creatinine was slightly above baseline at 1.8 after being on Lasix drip. Her potassium was 4.3 at discharge and lisinopril was resumed a low dose. Patient's potassium and renal function should be followed within the next week. Home Meds and New Rx's Prescriptions: New polyethylene glycol 3350 17 gram Powder In Packet 17 g PO DAILY PRN PRNQty: 0 RF: 0 prednisone 20 mg Tablet See Taper mg PO DAILY Qty: 14 RF: 0 Combivent Respimat 20-100 mcg/actuation Mist 1 puff inhalation QID Qty: 1 RF: 0 amoxicillin-pot clavulanate 875-125 mg tablet 1 tab PO BID Qty: 3 RF: 0 furosemide 40 mg tablet 40 mg PO DAILY Qty: 30 RF: 0 dextromethorphan-guaifenesin 10-100 mg/5 mL liquid 10 ml PO Q4H PRN14 Days Qty: 200 RF: 0 Continued sertraline 100 MG tablet 100 mg PO DAILY RF: 0 methotrexate sodium 2.5 MG tablet 5 tab PO .QWEEK RF: 0 ranitidine HCl [Zantac] 150 MG tablet 150 mg PO DAILY RF: 0 lisinopril 10 MG tablet 10 mg PO DAILY RF: 0 hydroxychloroquine 200 MG tablet 200 mg PO DAILY RF: 0 Calcium 600 + D(3) 1 EACH tablet 1 ea PO DAILY RF: 0 Combivent Respimat 120 PUFF mist 1 puff Inhalation QID PRNRF: 0 Discontinued prednisone 1 MG tablet 1 mg PO DAILY RF: 0 Discharge Instructions Instructions: Hyponatremia (DC), Community Acquired Pneumonia (DC) Additional Instructions: You have 3 doses left of 1 of your antibiotics, with first dose due this evening You have been given a taper of prednisone. You should be evaluated with your primary care doctor prior to the end of this taper. You should follow a fluid restriction of 1 L of fluids per day. This is so that your blood sodium level does not become dangerously low, which could cause seizures. Stand Alone Forms: Nursing Discharge Form Referrals: Faisal Beatty [ [facility] STAFF PHYSICIAN] - 05/20/19 10:40 am Activity:: Activity as Tolerated Equipment/Supplies:: No Equipment Needed Diet:: Restrict fluid to 1 liter a day for now Discharge Orders Discharge Orders: Discharge Order (Routine); Ordered 05/16/19 Ordered By: Shlomo Wilkerson Other Ambulatory Orders: Basic Metabolic Panel (Routine) Timeframe: 1 Week Location: None Selected Ordered By: Shlomo Wilkerson DS: Summary Status at Discharge Functional status at discharge: uses cane/walker Overall status at discharge: patient is progressing back to baseline Mental Status: mental status grossly normal Speech and Movement: speech and movement normal Mood: congruent mood Affect: normal affect Exam Narrative Exam Narrative: General: Very pleasant elderly female, A&Ox3, sitting up on side of the bed after walking from bathroom, not in acute distress, speaking in full sentences, though respiratory rate does increase after exertion. HEENT: Conjunctive are clear, MMM. I do not appreciate elevated jugular venous distention. Heart: RRR, no m/r/g Lungs: Dry crackles in bilateral posterior lung phelps one third up; no wheezing. No distress at rest. Abdomen: soft, nontender, nondistended Extremities: no e/c/c BLE's Psych Mental Status: mental status grossly normal Speech and Movement: speech and movement normal Mood: congruent mood Affect: normal affect DS: Data Vitals/I&O Vitals and I&O: Vital Signs Temperature 37.0 C 05/16/19 07:23 Temperature Source Tympanic 05/16/19 07:23 Pulse 82 05/16/19 07:23 Pulse Rhythm Regular 05/16/19 08:44 Pulse 95 H 05/11/19 18:30 Respiratory Rate 17 05/16/19 07:23 Respiratory Effort 05/16/19 08:44 Respiratory Depth Normal 05/16/19 08:44 Respiratory Pattern Normal 05/16/19 08:44 Blood Pressure 152/78 H 05/16/19 07:23 Blood Pressure Mean 67 05/11/19 17:30 Blood Pressure Position Sitting 05/11/19 13:48 Pulse Oximetry 95 05/16/19 07:23 Oxygen Delivery Method Room Air 05/16/19 07:23 Oxygen Flow Rate 0 05/16/19 07:23 Pain Level 0 05/16/19 07:23 Comment 05/12/19 15:05 Intake & Output 05/15/19 05/16/19 05/16/19 23:59 11:59 23:59 Intake Total 530 / 1367.5 250 / 250 Output Total 1850 / 2650 100 / 100 Balance -1320 / -1282.5 150 / 150 Weight 70.2 kg 69.1 kg Intake: IV 50 / 122.5 Oral 480 / 1245 250 / 250 Output: Urine 1850 / 2650 100 / 100 Other: Urine Color Yellow Yellow Urine Appearance Clear Clear Urine Odor Normal Normal Comment emptied by PROSTHETICS LAB TECHNICIAN Ally Voiding Methods Bedside Commode Toilet Data Completed and Pending Labs on day of discharge: Labs from last 24 hours 05/16/19 06:10 Sodium 127 L Potassium 4.3 Chloride 91 L Carbon Dioxide 28.4 Anion Gap 7.6 BUN 44 H Creatinine 1.87 H Estimated GFR/1.73 m2 26.18 Glucose 89 D Calcium 8.6 Preliminary micro results at discharge 05/11/19 16:40 Blood Culture - Preliminary Blood NO GROWTH 96 HOURS 05/11/19 16:30 Blood Culture - Preliminary Blood NO GROWTH 96 HOURS [facility] Social History Smoking/Tobacco Use Status: Former Tobacco Use Alcohol Intake: never Drug use: Never Substance use type: does not use
--- NOTE | 2019-05-16 14:05 | PDOC.CMDIS ---
- If Service Date Differs Date of service: 05/16/19 Time of Service: 14:05 LACE Index Scoring Tool - Questions: Length of Stay (in days): 4 - 6 Acuity (Admit via E.D.?): Yes E.D. Visits: 1 - Answers: Total Score: 8 Risk of Readmission: Low Risk Care Management Discharge Reason for Hospitalization: Pneumonia Discharge Plan: Paula will return home to her significant other, Greyson Gutierrez, her grandson and great grandson in [place]. She will follow up with her PCP, Regan [facility]lvarez at [facility] as well as her plan of care as prescribed. She will transport with family via private vehicle. Patient/Family Education Needs: Discharge plan, limitations, follow up plan and Ask me Three
== END 2019-05-16 14:02 | disposition home or self-care (01) | DRG 194 ==
LOC: ER 19:17 → MS 19:48
PROVIDERS: Internal Medicine; Physician Assistant; Admitting Provider General Practice; Emergency Provider Registered Nurse Emergency; PCP Internal Medicine; Visit Provider Family Medicine
DX: J18.9 Pneumonia, unspecified organism (principal); E87.1 Hypo-osmolality and hyponatremia; J44.1 Chronic obstructive pulmonary disease with (acute) exacerbation; J44.0 Chronic obstructive pulmonary disease with (acute) lower respiratory infection; N17.9 Acute kidney failure, unspecified; N39.0 Urinary tract infection, site not specified; Z03.818 Encounter for observation for suspected exposure to other biological agents ruled out; R09.02 Hypoxemia; I50.9 Heart failure, unspecified; E86.1 Hypovolemia; E87.6 Hypokalemia; E88.09 Other disorders of plasma-protein metabolism, not elsewhere classified; M06.9 Rheumatoid arthritis, unspecified; Z79.899 Other long term (current) drug therapy; Z79.52 Long term (current) use of systemic steroids; Z87.891 Personal history of nicotine dependence; Z71.3 Dietary counseling and surveillance
CPT/HCPCS: 36415; 36569; 71250; 80048; 80053; 82550; 84145; 85027; 87040; 87449; 93005; 93306; 94640; 96365; 96367; 96375; 99222; 99232; 99239; 99285; U0003; 71045; 81003; 81015; 83605; 83735; 83880; 84439; 84443; 84484; 85025; 87086; 93010; J0456; J0696; J1644; J1940; J1941; J2405; J3490; J7512; J7613; J7620

== ENCOUNTER 2019-11-18 16:16 | Outpatient (REF) | payer OTHER, MEDICAID, SELFPAY ==
[2019-11-18 21:15] LABS: HCT 28.4 % (36.0-46.0); MCH 27.9 pg (27.0-33.0); MCHC 31.7 % (32.0-36.0); MCV 87.9 fL (80-95); MPV 10.5 fL (8.0-11.0); Platelet Count 390 10^3/uL (130-400); RBC 3.23 10^6/uL (3.93-5.22); RDW 14.3 % (11.7-14.6); RDW-SD 45.4 fL
[2019-11-18 21:53] LABS: Anion Gap 12.7 mmol/L (3-11); BUN 30 mg/dL (7-18); CO2 21.3 mmol/L (21.0-32.0); CREATININE 2.08 mg/dL (0.55-1.02); Calcium 8.3 mg/dL (8.5-10.1); Chloride 100 mmol/L (98-107); Estimated GFR 23.09 (mL/min/1.73m2); Glucose 179 mg/dL (74-106); NT-proBNP 649 pg/mL (<300); Potassium 4.6 mmol/L (3.5-5.1); Sodium 134 mmol/L (136-145); TSH 2.78 uIU/mL (0.36-3.74)
[2019-11-18 22:11] LABS: Hemoglobin A1C 5.9 % (<5.7)
== END 2019-11-18 16:36 ==
LOC: NCHCN 16:16
PROVIDERS: PCP Internal Medicine; Visit Provider Nurse Practitioner Family
DX: R06.00 Dyspnea, unspecified (principal); I27.81 Cor pulmonale (chronic); N18.3 Chronic kidney disease, stage 3 (moderate); R41.89 Other symptoms and signs involving cognitive functions and awareness; R73.9 Hyperglycemia, unspecified; M06.9 Rheumatoid arthritis, unspecified; J84.10 Pulmonary fibrosis, unspecified
CPT/HCPCS: 80048; 85027; 83036; 83880; 84443

== ENCOUNTER 2020-02-15 10:00 | Outpatient (REF) | payer OTHER, MEDICAID, SELFPAY ==
[2020-02-15 22:52] LABS: C Diff PCR Negative (Negative)
== END 2020-02-15 10:20 ==
LOC: LBN 10:00
PROVIDERS: PCP Internal Medicine; Visit Provider Nurse Practitioner Family
DX: R19.7 Diarrhea, unspecified (principal)
CPT/HCPCS: 87493; 87324

== ENCOUNTER 2020-02-16 14:55 | Outpatient (REF) | payer OTHER, MEDICAID, SELFPAY ==
[2020-02-16 16:51] LABS: Anion Gap 13.2 mmol/L (3-11); BUN 51 mg/dL (7-18); CO2 16.8 mmol/L (21.0-32.0); Chloride 101 mmol/L (98-107); Estimated GFR 14.57 (mL/min/1.73m2); Glucose 123 mg/dL (74-106); Potassium 4.7 mmol/L (3.5-5.1); Sodium 131 mmol/L (136-145); Vitamin B12 1834 pg/mL (193-986)
== END 2020-02-16 15:15 ==
LOC: NCHCN 14:55
PROVIDERS: PCP Internal Medicine; Visit Provider Nurse Practitioner Family
DX: R19.7 Diarrhea, unspecified (principal); R73.9 Hyperglycemia, unspecified
CPT/HCPCS: 80048; 82607

== ENCOUNTER 2020-03-05 21:07 | Outpatient (REF) | payer OTHER, MEDICAID, MEDICARE, SELFPAY ==
[2020-03-05 21:34] LABS: Absolute Eosinophil Count 0.06 10^3/uL (0.0-0.7); Absolute Monocyte Count 0.55 10^3/uL (0.1-0.8); Absolute Neutrophil Count 13.44 10^3/uL (1.2-6.7); Basophils % 0.3; Eosinophils % 0.4; HCT 32.2 % (36.0-46.0); HGB 9.7 g/dL (11.2-15.7); Immature Grans % 1.3; Lymphocytes % 6.8; MCHC 30.1 % (32.0-36.0); MCV 93.1 fL (80-95); MPV 11.3 fL (8.0-11.0); Monocytes % 3.6; Neutrophils % 87.6; Nucleated RBC 0 %; Platelet Count 277 10^3/uL (130-400); RBC 3.46 10^6/uL (3.93-5.22); RDW 15.5 % (11.7-14.6); RDW-SD 52.4 fL; WBC 15.34 10^3/uL (4.4-10.8)
[2020-03-05 21:35] LABS: Absolute Basophil Count 0.05 10^3/uL (0.0-0.2); Absolute Lymphocyte Count 1.04 10^3/uL (1.2-3.4)
[2020-03-05 21:56] LABS: ALT 36 U/L (14-59); AST 31 U/L (15-37); Albumin 2.5 g/dL (3.4-5.0); Alkaline Phosphatase 38 U/L (46-116); Anion Gap 8.1 mmol/L (3-11); BUN 28 mg/dL (7-18); Bilirubin, Total 0.2 mg/dL (0.2-1.0); CO2 24.9 mmol/L (21.0-32.0); Calcium 7.8 mg/dL (8.5-10.1); Chloride 103 mmol/L (98-107); Estimated GFR 27.28 (mL/min/1.73m2); Glucose 125 mg/dL (74-106); Potassium 4.8 mmol/L (3.5-5.1); Sodium 136 mmol/L (136-145); Total Protein 6.2 g/dL (6.4-8.2)
== END 2020-03-05 21:27 ==
LOC: LBN 21:07
PROVIDERS: PCP Internal Medicine; Visit Provider Nurse Practitioner Family
DX: L02.411 Cutaneous abscess of right axilla (principal); I50.9 Heart failure, unspecified; N18.30 Chronic kidney disease, stage 3 unspecified
CPT/HCPCS: 80053; 85025

== ENCOUNTER 2020-04-27 15:48 | Outpatient (REF) | payer OTHER, MEDICAID, SELFPAY ==
[2020-04-27 20:23] LABS: Abs Immature Grans 0.13 10^3/uL (0.0-0.06); Absolute Basophil Count 0.04 10^3/uL (0.0-0.2); Absolute Eosinophil Count 0.07 10^3/uL (0.0-0.7); Absolute Lymphocyte Count 1.77 10^3/uL (1.2-3.4); Absolute Monocyte Count 0.61 10^3/uL (0.1-0.8); Basophils % 0.3; Eosinophils % 0.5; HCT 34.8 % (36.0-46.0); HGB 10.5 g/dL (11.2-15.7); Immature Grans % 0.9; Lymphocytes % 12.2; MCH 27.6 pg (27.0-33.0); MCHC 30.2 % (32.0-36.0); MCV 91.6 fL (80-95); MPV 11.6 fL (8.0-11.0); Monocytes % 4.2; Neutrophils % 81.9; Nucleated RBC 0 %; Platelet Count 272 10^3/uL (130-400); RDW 14.9 % (11.7-14.6); RDW-SD 50.3 fL; WBC 14.54 10^3/uL (4.4-10.8)
[2020-04-27 20:36] LABS: Absolute Neutrophil Count 11.91 10^3/uL (1.2-6.7)
[2020-04-27 20:46] LABS: ALT 21 U/L (14-59); AST 22 U/L (15-37); Albumin 2.5 g/dL (3.4-5.0); Alkaline Phosphatase 60 U/L (46-116); Anion Gap 10.4 mmol/L (3-11); BUN 37 mg/dL (7-18); Bilirubin, Total 0.3 mg/dL (0.2-1.0); CO2 25.6 mmol/L (21.0-32.0); Calcium 8.5 mg/dL (8.5-10.1); Chloride 104 mmol/L (98-107); Estimated GFR 24.16 (mL/min/1.73m2); Glucose 234 mg/dL (74-106); Potassium 4.5 mmol/L (3.5-5.1); Sodium 140 mmol/L (136-145); Total Protein 6.5 g/dL (6.4-8.2)
== END 2020-04-27 15:49 | disposition home or self-care (01) ==
LOC: NCHCN 15:48
PROVIDERS: PCP Internal Medicine; Visit Provider Family Medicine
DX: R19.7 Diarrhea, unspecified (principal)
CPT/HCPCS: 80053; 85025

== ENCOUNTER 2020-05-11 19:51 | Outpatient (REF) | payer OTHER, MEDICAID, SELFPAY ==
[2020-05-11 21:09] LABS: Anion Gap 11.7 mmol/L (3-11); BUN 47 mg/dL (7-18); CO2 28.3 mmol/L (21.0-32.0); CREATININE 2.2 mg/dL (0.55-1.02); Calcium 8.8 mg/dL (8.5-10.1); Chloride 100 mmol/L (98-107); Estimated GFR 21.64 (mL/min/1.73m2); Glucose 235 mg/dL (74-106); Potassium 3.6 mmol/L (3.5-5.1); Sodium 140 mmol/L (136-145)
== END 2020-05-11 19:52 | disposition home or self-care (01) ==
LOC: NCHCN 19:51
PROVIDERS: PCP Internal Medicine; Visit Provider Nurse Practitioner Family
DX: N18.30 Chronic kidney disease, stage 3 unspecified (principal); I50.9 Heart failure, unspecified; I89.0 Lymphedema, not elsewhere classified
CPT/HCPCS: 80048

== ENCOUNTER 2020-05-24 20:10 | Outpatient (REF) | payer OTHER, MEDICAID, SELFPAY ==
[2020-05-26 14:35] LABS: COVID-19 RT-PCR UVMMC Result Negative (Negative)
== END 2020-05-24 20:11 | disposition home or self-care (01) ==
LOC: NCHCN 20:10
PROVIDERS: PCP Internal Medicine; Visit Provider Nurse Practitioner Family
DX: Z20.822 Contact with and (suspected) exposure to COVID-19 (principal); Z01.818 Encounter for other preprocedural examination
CPT/HCPCS: 87635; U0003

== ENCOUNTER 2020-09-26 19:18 | Outpatient (REF) | payer OTHER, MEDICAID, SELFPAY ==
[2020-09-26 19:58] LABS: Hemoglobin A1C 8.3 % (<5.7)
[2020-09-26 20:05] LABS: ALT 18 U/L (14-59); AST 16 U/L (15-37); Albumin 2.2 g/dL (3.4-5.0); Alkaline Phosphatase 81 U/L (46-116); Anion Gap 8.2 mmol/L (3-11); BUN 35 mg/dL (7-18); Bilirubin, Total 0.2 mg/dL (0.2-1.0); CO2 29.8 mmol/L (21.0-32.0); CREATININE 1.4 mg/dL (0.55-1.02); Calcium 9.6 mg/dL (8.5-10.1); Chloride 97 mmol/L (98-107); Estimated GFR 36.46 (mL/min/1.73m2); Glucose 327 mg/dL (74-106); Potassium 4.5 mmol/L (3.5-5.1); Sodium 135 mmol/L (136-145); Total Protein 6.1 g/dL (6.4-8.2)
== END 2020-09-26 19:19 | disposition home or self-care (01) ==
LOC: NCHCN 19:18
PROVIDERS: PCP Internal Medicine; Visit Provider Family Medicine
DX: I12.9 Hypertensive chronic kidney disease with stage 1 through stage 4 chronic kidney disease, or unspecified chronic kidney disease (principal); R73.09 Other abnormal glucose
CPT/HCPCS: 80053; 83036

== ENCOUNTER 2020-10-04 13:31 | Outpatient (REF) | payer OTHER, MEDICAID, SELFPAY ==
[2020-10-04 15:47] LABS: Bilirubin Negative (Negative); Blood Large (Negative); Clarity Cloudy (Clear); Glucose Negative (Negative); Ketones Negative (Negative); Leukocyte Esterase Large (Negative); Nitrite Negative (Negative); Urobilinogen 0.2 EU/dL (Up TO 0.2); pH >= 9.0 (5-8)
[2020-10-04 16:10] LABS: Bacteria Many HPF (Negative); Crystals Few Triple Phos HPF (Negative); Epithelial Cells Rare HPF (Negative); Mucus Trace (Negative); WBC 20-50 HPF (0-5)
[2020-10-04 16:12] LABS: C & S Indicated? Yes; Casts Negative LPF (Negative)
== END 2020-10-04 13:32 | disposition home or self-care (01) ==
LOC: LBN 13:31
PROVIDERS: PCP Internal Medicine; Visit Provider Family Medicine
DX: R68.89 Other general symptoms and signs (principal); R82.998 Other abnormal findings in urine
CPT/HCPCS: 87077; 81003; 81015; 87086; 87186